=== PATIENT | female | born 1975 | race Caucasian/White ===

== ENCOUNTER 2016-12-30 23:54 | Emergency (ER) | payer MEDICARE, MEDICAID ==
--- NOTE | 2016-12-31 00:23 | ED Physician Chart ---
ED Chief Complaint/HPI - Patient Information Date Seen:: 12/30/16 Time Seen:: 23:59 Chief Complaint:: g-tube plugged up History of Present Illness:: THIS IS A 41 YO FEMALE SEVERE CP PATIENT SENT FROM THE [facility] FOR A G- TUBE MALFUNCTIONING. SHE IS NON-VERBAL AND QUADRAPLEGIC. Allergies:: Allergies Allergy/AdvReac Type Severity Reaction Status Date / Time No Known Allergies Allergy Verified 12/31/16 00:03 Vitals:: Vital Signs - 8 hr 12/30/16 23:55 Temp 97.9 F HR 70 RR 20 BP 114/61 O2 Sat % 96 Historian:: Medical Records Review:: Nurse's Note Reviewed, Transfer documents Reviewed ED Review of Systems - Review of Systems General/Constitutional: No fever, No chills, No weight loss, No weakness, No diaphoresis, No edema, No loss of appetite, Other (THIS PT IS UNABLE TO GIVE A REVIEW OF SYSTEMS.) Skin: No skin lesions, No rash, No bruising Head: No headache, No light-headedness Eyes: No loss of vision, No pain, No diplopia ENT: No earache, No nasal drainage, No sore throat, No tinnitus Neck: No neck pain, No swelling, No thyromegaly, No stiffness, No mass noted Cardio Vascular: No chest pain, No palpitations, No PND, No orthopnea, No edema Pulmonary: No SOB, No cough, No sputum, No wheezing GI: No nausea, No vomiting, No diarrhea, No pain, No melena, No hematochezia, No constipation, No hematemesis G/U: No dysuria, No frequency, No hematuria Musculoskeletal: No bone or joint pain, No back pain, No muscle pain Endocrine: No polyuria, No polydipsia Psychiatric: No prior psych history, No depression, No anxiety, No suicidal ideation Hematopoietic: No bruising, No lymphadenopathy Allergic/Immuno: No urticaria, No angioedema Neurological: No syncope, No focal symptoms, No weakness, No paresthesia, No headache, No seizure, No dizziness, No confusion, No vertigo ED Past Medical History - Past Medical History Obtainable: Yes Past Medical History: CVA/TIA, Dementia Family History: None Social History: Non Smoker, No Alcohol, No Drug Use, Care Facility Surgical History: PEG/GTube Psychiatricy History: Dementia Medication: Reviewed Family Medical History - Family Member Mother History Unknown: Yes ED Physical Exam - Physical Examination General/Constitutional: Well-developed, well-nourished, Alert, No distress, GCS 15, Non-toxic appearing, Ambulatory Other Gen/Cons comments:: 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 Head: Atraumatic Eyes: Lids, conjuctiva normal, PERRL, EOMI Skin: Nl inspection, No rash, No skin lesions, No ecchymosis, Well hydrated, No lymphadenopathy ENMT: External ears, nose nl, Nasal exam nl, Lips, teeth, gums nl Neck: Nontender, Full ROM w/o pain, No JVD, No nuchal rigidity, No bruit, No mass, No stridor Respiratory: Nl effort/Exclusion, Clear to Auscultation, No Wheeze/Rhonchi/Rales Cardio Vascular: RRR, No murmur, gallop, rubs, NL S1 S2 GI: No tenderness/rebounding/guarding, No organomegaly, No hernia, Normal BS's, Nondistended, No mass/bruits, No McBurney tenderness Other GI comments:: ABDOMEN IS SOFT AND G-TUBE NOTED IN PLACE WITH GOOD NORMAL FUNCTIONING AFTER UNPLUGGING IT : No CVA tenderness Extremities: No tenderness or effusion, Full ROM, normal strength in all extremities, No edema, Normal digits & nails Neuro/Psych: DTR's symmetric, Normal sensory exam, Normal motor strength, Mood normal, Normal gait Other Neuro/Psych comments:: QUADRAPLEGIC Misc: normal gait, Normal back, No paraspinal tenderness ED Assessment - Assessment General Assessment: MALFUNCTIONING G-TUBE ED Septic Shock - . Is Septic Shock (SBP<90, OR Lactate>4 mmol\L) present?: No - <6hrs of presentation: Vital Signs: Vital Signs - 8 hr 12/30/16 23:55 Temp 97.9 F HR 70 RR 20 BP 114/61 O2 Sat % 96 ED Reassessment (Disposition) - Reassessment Reassessment Condition:: Improved - Diagnosis Diagnosis:: G-TUBE MALFUNCTIONING - Aftercare/Follow up Instructions Aftercare/Follow-Up Instructions:: Counseled pt regarding lab results/diagnosis & need follow up, Refer to Discharge Instructions, Counseled pt & family regarding lab results/diagnosis & need follow up - Patient Disposition Discharge/Transfer:: Senior Care Care - SNF Condition at Disposition:: Improved ED Discharge Plan - Patient Disposition Admit/Discharge/Transfer: Discharge/Transfered to SNF Instructions: Care of a Feeding Tube, [id number] Additional Instructions: PT'S J - TUBE WAS CLEARED WITH WATER. PLEASE FOLLOW UP WITH THE PT'S REGULAR DOCTOR.
== END 2016-12-31 00:15 ==
LOC: ER 23:54
DX: K94.23 Gastrostomy malfunction (principal); Z86.73 Personal history of transient ischemic attack (TIA), and cerebral infarction without residual deficits
CPT/HCPCS: Z7502

== ENCOUNTER 2017-01-09 23:35 | Inpatient (IN) | payer MEDICARE, MEDICAID ==
[2017-01-10 01:10] LABS: % BASOPHILS 0.1 % (0.0-2.0); % EOSINOPHILS 4.2 % (0.0-5.0); % LYMPHOCYTES 48.9 % (20.0-50.0); % MONOCYTES 6.8 % (2.0-10.0); HEMATOCRIT 36.5 % (41.0-60); HEMOGLOBIN 12.2 gm/dL (12-16); MEAN CORPUSCULAR HEMOGLOBIN 33.8 pg (27.0-31.0); MEAN CORPUSCULAR HGB CONC 33.4 pg (28.0-36.0); MEAN PLATELET VOLUME 9.3 fl; NEUTROPHILE ABSOLUTE 1.8 Th/cmm (1.8-8.0); PLATELET COUNT 162 Th/cmm (150-400); RED BLOOD COUNT 3.61 Mil/cmm (3.80-5.10); RED CELL DISTRIBUTION WIDTH 14.3 % (11.5-20.0); WHITE BLOOD COUNT 4.4 Th/cmm (4.8-10.8)
[2017-01-10 01:29] LABS: ALKALINE PHOSPHATASE 566 U/L (34-104); ANION GAP 8.2 (7.0-16.0); BILIRUBIN,TOTAL 0.2 mg/dL (0.3-1.0); BUN - UREA NITROGEN 19 mg/dL (7-25); BUN/CREATININE RATIO 47.5; CALCIUM SERUM 9.9 mg/dL (8.6-10.3); CARBON DIOXIDE 30.1 mEq/L (21.0-31.0); CHLORIDE 100 mEq/L (98-107); CREATININE - SERUM 0.4 mg/dL (0.6-1.2); GLUCOSE 81 mg/dL (70-105); POTASSIUM SERUM 4.3 mEq/L (3.5-5.1); SGOT 112 U/L (13-39); SGPT/ALT 252 U/L (7-52); SODIUM SERUM 134 mEq/L (136-145)
[2017-01-10 03:00] LABS: URINE BILIRUBIN NEGATIVE (NEGATIVE); URINE BLOOD NEGATIVE (NEGATIVE); URINE GLUCOSE (UA) NEGATIVE (NEGATIVE); URINE KETONE NEGATIVE (NEGATIVE); URINE PROTEIN TRACE mg/dL (NEGATIVE); URINE UROBILINOGEN 0.2 E.U./dL (0.2 - 1.0)
[2017-01-10 03:06] LABS: URINE COLOR YELLOW
[2017-01-10 03:07] LABS: URINE AMORPHOUS SEDIMENT MODERATE PHOSPHATES (NONE SEEN); URINE BACTERIA FEW /hpf (NONE SEEN); URINE EPITHELIAL CELLS OCCASIONAL /lpf (FEW); URINE RBC 0-2 /hpf (0-5); URINE WBC 0-2 /hpf (0-5)
--- NOTE | 2017-01-10 06:21 | ED Physician Chart ---
ED Chief Complaint/HPI - Patient Information Date Seen:: 01/09/17 Time Seen:: 23:55 Chief Complaint:: MALFUNCTIONING OF THE G-TUBE History of Present Illness:: THIS IS A 41 YO FEMALE SEVERE CEREBRAL PALSY PATIENT SENT [facility] FOR EVALU[facility] AND TREATMENT FOR THE MALFUNCTIONING OF THE GJ-TUBE. THE PATIENT IS CHRONICALLY ILL WITH CIRRHOSIS, ANEMIA, SEIZURES,HTN AND HAS A PACE MAKER. Allergies:: Allergies Allergy/AdvReac Type Severity Reaction Status Date / Time No Known Allergies Allergy Verified 01/09/17 23:50 Vitals:: Vital Signs - 8 hr 01/09/17 01/10/17 01/10/17 23:40 03:00 04:02 Temp 97.9 F HR 75 80 80 RR 18 13 13 BP 131/82 96/55 95/45 O2 Sat % 97 95 94 Historian:: Medical Records Review:: Nurse's Note Reviewed, Old Chart Reviewed, Transfer documents Reviewed ED Review of Systems - Review of Systems General/Constitutional: No fever, No chills, No weight loss, No weakness, No diaphoresis, No edema, No loss of appetite, Other (THIS PATIENT IS UNABLE TO GIVE A REVIEW OF SYSTEMS.) Skin: No skin lesions, No rash, No bruising Head: No headache, No light-headedness Eyes: No loss of vision, No pain, No diplopia ENT: No earache, No nasal drainage, No sore throat, No tinnitus Neck: No neck pain, No swelling, No thyromegaly, No stiffness, No mass noted Cardio Vascular: No chest pain, No palpitations, No PND, No orthopnea, No edema Pulmonary: No SOB, No cough, No sputum, No wheezing GI: No nausea, No vomiting, No diarrhea, No pain, No melena, No hematochezia, No constipation, No hematemesis G/U: No dysuria, No frequency, No hematuria Musculoskeletal: No bone or joint pain, No back pain, No muscle pain Endocrine: No polyuria, No polydipsia Psychiatric: No prior psych history, No depression, No anxiety, No suicidal ideation Hematopoietic: No bruising, No lymphadenopathy Allergic/Immuno: No urticaria, No angioedema Neurological: No syncope, No focal symptoms, No weakness, No paresthesia, No headache, No seizure, No dizziness, No confusion, No vertigo ED Past Medical History - Past Medical History Obtainable: Yes Past Medical History: HTN, CAD, Dyslipidemia, PUD/GERD, Seizures, Dementia Family History: None Social History: Non Smoker, No Alcohol, No Drug Use, Care Facility Surgical History: Cholecystectomy, Pacemaker, PEG/GTube Psychiatricy History: None Medication: Reviewed Family Medical History - Family Member Mother History Unknown: Yes ED Physical Exam - Physical Examination General/Constitutional: Awake, Well-developed, well-nourished, Alert, No distress, GCS 15, Non-toxic appearing, Ambulatory Other Gen/Cons comments:: THE PATIENT IS AWAKE BUT UNABLE TO COMMUNICATE Head: Atraumatic Eyes: Lids, conjuctiva normal, PERRL, EOMI Skin: Nl inspection, No rash, No skin lesions, No ecchymosis, Well hydrated, No lymphadenopathy ENMT: External ears, nose nl, Nasal exam nl, Lips, teeth, gums nl Neck: Nontender, Full ROM w/o pain, No JVD, No nuchal rigidity, No bruit, No mass, No stridor Respiratory: Nl effort/Exclusion, Clear to Auscultation, No Wheeze/Rhonchi/Rales Cardio Vascular: RRR, No murmur, gallop, rubs, NL S1 S2 GI: No tenderness/rebounding/guarding, No organomegaly, No hernia, Normal BS's, Nondistended, No mass/bruits, No McBurney tenderness Other GI comments:: J-TUBE NOTED IN PLACE BUT NOT FUNCTIONING. : No CVA tenderness Extremities: No tenderness or effusion, Full ROM, normal strength in all extremities, No edema, Normal digits & nails Neuro/Psych: DTR's symmetric, Normal sensory exam, Normal motor strength, Mood normal, Normal gait Other Neuro/Psych comments:: SPASTIC QUADRIPLEGIC WITH OPTIC ATROPHY Misc: normal gait, Normal back, No paraspinal tenderness ED Labs/Radiology/EKG Results - Lab Results Results: Laboratory Tests 01/10/17 01/10/17 01/10/17 00:40 00:40 00:40 WBC 4.4 L RBC 3.61 L Hgb 12.2 Hct 36.5 L MCV 101.0 H MCH 33.8 H MCHC Differential 33.4 RDW 14.3 Plt Count 162 MPV 9.3 Neutrophils % 40.0 Lymphocytes % 48.9 Monocytes % 6.8 Eosinophils % 4.2 Basophils % 0.1 Sodium 134 L Potassium 4.3 Chloride 100 Carbon Dioxide 30.1 Anion Gap 8.2 BUN 19 Creatinine 0.4 L Est GFR ( Amer) > 60.0 Est GFR (Non-Af Amer) > 60.0 BUN/Creatinine Ratio 47.5 Glucose 81 Calcium 9.9 Total Bilirubin 0.2 L AST 112 H ALT 252 H Alkaline Phosphatase 566 H Ammonia Total Protein 7.0 Albumin 3.5 L Globulin 3.5 Albumin/Globulin Ratio 1.0 Amylase TSH 2.12 Urine Source Urine Color Urine Clarity Urine pH Ur Specific [place] Urine Protein Urine Glucose (UA) Urine Ketones Urine Blood Urine Nitrate Urine Bilirubin Urine Urobilinogen Ur Leukocyte Esterase Urine RBC Urine WBC Ur Epithelial Cells Amorphous Sediment Urine Bacteria 01/10/17 01/10/17 01/10/17 00:40 00:40 02:45 WBC RBC Hgb Hct MCV MCH MCHC Differential RDW Plt Count MPV Neutrophils % Lymphocytes % Monocytes % Eosinophils % Basophils % Sodium Potassium Chloride Carbon Dioxide Anion Gap BUN Creatinine Est GFR ( Amer) Est GFR (Non-Af Amer) BUN/Creatinine Ratio Glucose Calcium Total Bilirubin AST ALT Alkaline Phosphatase Ammonia 78 H Total Protein Albumin Globulin Albumin/Globulin Ratio Amylase 112 H TSH Urine Source CLEAN C Urine Color YELLOW Urine Clarity HAZY Urine pH 8.0 Ur Specific [place] 1.010 Urine Protein TRACE Urine Glucose (UA) NEGATIVE Urine Ketones NEGATIVE Urine Blood NEGATIVE Urine Nitrate NEGATIVE Urine Bilirubin NEGATIVE Urine Urobilinogen 0.2 Ur Leukocyte Esterase NEGATIVE Urine RBC 0-2 Urine WBC 0-2 Ur Epithelial Cells OCCASIONAL Amorphous Sediment MODERATE PHOSPHATES Urine Bacteria FEW ED Assessment - Assessment General Assessment: J-TUBE MALFUNCTIONING LIVER CIRRHOSIS SEVERE CP ED Septic Shock - . Is Septic Shock (SBP<90, OR Lactate>4 mmol\L) present?: No - <6hrs of presentation: Vital Signs: Vital Signs - 8 hr 01/09/17 01/10/17 01/10/17 23:40 03:00 04:02 Temp 97.9 F HR 75 80 80 RR 18 13 13 BP 131/82 96/55 95/45 O2 Sat % 97 95 94 ED Reassessment (Disposition) - Reassessment Reassessment Condition:: Unchanged - Diagnosis Diagnosis:: J-TUBE MALFUNCTIONING CHRONIC LIVER DISEASE SEVERE CEREBRAL PALSY - Patient Disposition Discharge/Transfer:: Acute Care w/in this hosp Admitting Medical Physician:: Adonay Ariza Condition at Disposition:: Unchanged ED Discharge Plan - Patient Disposition Admit/Discharge/Transfer: Acute Care w/in this hosp Condition at Disposition: Unchanged
--- NOTE | 2017-01-10 08:28 | History and Physical ---
History of Present Illness - HPI Chief Complaint: malfunctioning of the gtube HPI: 41 year old female who presents to [facility] ER for evaluation and treatment for the malfunctioning GJ tube noted at the group home. Patient has a history of cirrhosis,anemia,seizures,htn and has a pacemaker. Patient was routine labwork done in the ER. 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, Other (Cerebral Palsy,Dementia) GI: Report: Gastritis, Peptic Ulcer, Other (chronic liver disease) Psych: Report: No Pertinent Hx Musculoskeletal: Report: No Pertinent Hx Rheumatologic: Report: No pertinent Hx Infectious Disease: Report: No Pertinent Hx Renal/: Report: No Pertinent Hx Endocrine: Report: No Pertinent Hx Dermatology: Report: No Pertinent Hx - Past Surgical History Past Surgical History: Other (chlecystectomy,pacemaker placement,PEG/GT placement) Family Medical History - Family Member Mother History Unknown: Yes Social History Smoke: No Alcohol: None Drugs: None Lives: Correction - Medications Home Medications: Home Medication Medication Instructions Recorded Type Acetaminophen [Tylenol] 650 mg GT Q4HR PRN 12/31/16 History Alendronate Sodium [Fosamax] 70 mg GT QFRI 12/31/16 History Ascorbic Acid [Vitamin C] 500 mg GT DAILY 12/31/16 History Bisacodyl [Dulcolax 10 Mg Supp] 10 mg RC Q96HR PRN 12/31/16 History Calcium Carbonate [Tums] 500 mg GT Q6HR PRN 12/31/16 History Calcium Citrate/Vitamin D3 1 each GT DAILY 12/31/16 History [Calcium Citrate +Vit D3 Tablet] Docusate Sodium 100 mg GT TID 12/31/16 History Ferrous Sulfate [Ferosul] 220 mg GT DAILY 12/31/16 History Fleet Enema [Fleet Enema] 1 bot RC Q96HR PRN 12/31/16 History Fludrocortisone Acetate [Florinef] 0.1 mg GT DAILY 12/31/16 History Folic Acid [Folate*] 1 mg GT DAILY 12/31/16 History Lacosamide [Vimpat] 200 mg GT BID 12/31/16 History Levothyroxine [Synthroid] 0.05 mg GT QDAC 12/31/16 History Magnesium Hydroxide [Milk of 30 ml GT Q72HR PRN 12/31/16 History Magnesia] Metoclopramide HCl 10 ml GT Q8HR 12/31/16 History Midodrine [Proamatine] 5 mg GT TID 12/31/16 History Multivitamin w/ Minerals 1 tab GT DAILY 12/31/16 History [Theragran M] Sucralfate [Carafate] 10 ml GT QID 12/31/16 History Ursodiol [Actigall] 300 mg GT DAILY 12/31/16 History acetaZOLAMIDE [Diamox] 250 mg GT MONFRI 12/31/16 History - Allergies Allergies/Adverse Reactions: Allergies Allergy/AdvReac Type Severity Reaction Status Date / Time No Known Allergies Allergy Verified 01/09/17 23:50 Review of Systems - Review of Systems Constitutional: Report: Other (patient unable to provide a review of systems) Eyes: Report: No Significant ENT: Report: No Significant Respiratory: Report: No Significant Cardiovascular: Report: No Significant Gastrointestinal: Report: Other (malfunctioning Gtube) Genitourinary: Report: No Significant Musculoskeletal: Report: No Significant Skin: Report: No Significant Neurological: Report: No Significant, Seizures, Other (spastic quadriplegia with optic atrophy) Physical Exam - Physical Exam HEENT: Report: Ears Nose Throat within normal limits, Pharnyx within normal limits Neck: Report: Within normal limits Cardiovascular Systems: Report: +s1/s2 noted, Regular, Rate and Rhythm Respiratory: Report: Breath Sounds are within normal limits Abdomen: Report: Non-tender to palpation Back: Report: Inspection of back is within normal limits. Extremities: Report: Non-tender to palpation., Patient had full range of motion Skin: Report: Color of skin is within normal limits Neuro/Psych: Report: Mood affect is within normal limits, A+Ox3 - Lab Results All Lab Results last 24 hours: Laboratory Last Values WBC 4.4 Th/cmm (4.8-10.8) L 01/10/17 00:40 RBC 3.61 Mil/cmm (3.80-5.10) L 01/10/17 00:40 Hgb 12.2 gm/dL (12-16) 01/10/17 00:40 Hct 36.5 % (41.0-60) L 01/10/17 00:40 MCV 101.0 fl (81-100) H 01/10/17 00:40 MCH 33.8 pg (27.0-31.0) H 01/10/17 00:40 MCHC Differential 33.4 pg (28.0-36.0) 01/10/17 00:40 RDW 14.3 % (11.5-20.0) 01/10/17 00:40 Plt Count 162 Th/cmm (150-400) 01/10/17 00:40 MPV 9.3 fl 01/10/17 00:40 Neutrophils % 40.0 % (40.0-80.0) 01/10/17 00:40 Lymphocytes % 48.9 % (20.0-50.0) 01/10/17 00:40 Monocytes % 6.8 % (2.0-10.0) 01/10/17 00:40 Eosinophils % 4.2 % (0.0-5.0) 01/10/17 00:40 Basophils % 0.1 % (0.0-2.0) 01/10/17 00:40 Sodium 134 mEq/L (136-145) L 01/10/17 00:40 Potassium 4.3 mEq/L (3.5-5.1) 01/10/17 00:40 Chloride 100 mEq/L (98-107) 01/10/17 00:40 Carbon Dioxide 30.1 mEq/L (21.0-31.0) 01/10/17 00:40 Anion Gap 8.2 (7.0-16.0) 01/10/17 00:40 BUN 19 mg/dL (7-25) 01/10/17 00:40 Creatinine 0.4 mg/dL (0.6-1.2) L 01/10/17 00:40 Est GFR ( Amer) > 60.0 ml/min (>90) 01/10/17 00:40 Est GFR (Non-Af Amer) > 60.0 ml/min 01/10/17 00:40 BUN/Creatinine Ratio 47.5 01/10/17 00:40 Glucose 81 mg/dL (70-105) 01/10/17 00:40 Calcium 9.9 mg/dL (8.6-10.3) 01/10/17 00:40 Total Bilirubin 0.2 mg/dL (0.3-1.0) L 01/10/17 00:40 AST 112 U/L (13-39) H 01/10/17 00:40 ALT 252 U/L (7-52) H 01/10/17 00:40 Alkaline Phosphatase 566 U/L (34-104) H 01/10/17 00:40 Ammonia 78 umol/L (16-53) H 01/10/17 00:40 Total Protein 7.0 gm/dL (6.0-8.3) 01/10/17 00:40 Albumin 3.5 gm/dL (3.7-5.3) L 01/10/17 00:40 Globulin 3.5 gm/dL 01/10/17 00:40 Albumin/Globulin Ratio 1.0 (1.0-1.8) 01/10/17 00:40 Amylase 112 U/L (29-103) H 01/10/17 00:40 TSH 2.12 uIU/ml (0.34-5.60) 01/10/17 00:40 Urine Source CLEAN C 01/10/17 02:45 Urine Color YELLOW 01/10/17 02:45 Urine Clarity HAZY (CLEAR) 01/10/17 02:45 Urine pH 8.0 (4.6 - 8.0) 01/10/17 02:45 Ur Specific [place] 1.010 (1.005-1.030) 01/10/17 02:45 Urine Protein TRACE mg/dL (NEGATIVE) 01/10/17 02:45 Urine Glucose (UA) NEGATIVE mg/dL (NEGATIVE) 01/10/17 02:45 Urine Ketones NEGATIVE mg/dL (NEGATIVE) 01/10/17 02:45 Urine Blood NEGATIVE (NEGATIVE) 01/10/17 02:45 Urine Nitrate NEGATIVE (NEGATIVE) 01/10/17 02:45 Urine Bilirubin NEGATIVE (NEGATIVE) 01/10/17 02:45 Urine Urobilinogen 0.2 E.U./dL (0.2 - 1.0) 01/10/17 02:45 Ur Leukocyte Esterase NEGATIVE (NEGATIVE) 01/10/17 02:45 Urine RBC 0-2 /hpf (0-5) 01/10/17 02:45 Urine WBC 0-2 /hpf (0-5) 01/10/17 02:45 Ur Epithelial Cells OCCASIONAL /lpf (FEW) 01/10/17 02:45 Amorphous Sediment MODERATE PHOSPHATES (NONE SEEN) 01/10/17 02:45 Urine Bacteria FEW /hpf (NONE SEEN) 01/10/17 02:45 - Assessment Assessment: malfunctioning gtube ... GI consult for evaluation. cirrhosis anemia seizures htn pacemaker - Plan Plan: malfunctioning gtube ... GI consult for evaluation. cirrhosis anemia seizures htn pacemaker
[2017-01-10] MEDS ORDERED: Magnesium Hydroxide (MOM) 30 mL UDC GT PRN (08:33)
[2017-01-10] MEDS ORDERED: Fleet Enema 135 mL RC PRN (08:33)
[2017-01-10 09:29] LABS: ACETAMINOPHEN < 10.0 ug/mL (10.0-30.0)
--- NOTE | 2017-01-10 11:05 | Diagnostic Imaging Report ---
Ultrasound abdomen HISTORY: Elevated liver function test , provided history of cholecystectomy. COMPARISON: None Technique: Sonography of the abdomen was performed in multiple planes. FINDINGS: Exam is limited due to body habitus and bowel gas and patient uncooperative. The liver demonstrates normal echogenicity and measures 13.4 cm. The liver margin is not well-defined limiting assessment for focal lesions. The gallbladder was not visualized. The common bile duct was also not visualized. The pancreas is not well-visualized due to bowel gas. The right kidney measures 8.0 cm. Left kidney measures 8.3 cm. No obvious focal lesions or hydronephrosis. The renal margins are not well-defined due to bowel gas. The spleen measures 9.2 cm. IMPRESSION: Markedly Limited exam due to bowel gas and patient not cooperating for the examination. No evidence of hepatomegaly The gallbladder was not visualized which may be due to prior cholecystectomy or gallbladder contraction. Please correlate with surgical history. The common bile duct was also not visualized. If clinically warranted CT follow-up may also be obtained.
--- NOTE | 2017-01-10 11:59 | Consultation ---
DATE OF CONSULTATION: 01/10/2017 INPATIENT GASTROINTESTINAL CONSULT REFERRING PHYSICIAN: Dr. Ariza. REASON FOR CONSULTATION: Malfunctioning of the GJ tube. HISTORY OF PRESENT ILLNESS: This is a 41-year-old female with cerebral palsy, sent in from a retirement because of malfunctioning of GJ tube. The patient is otherwise a poor historian, unable to give any meaningful history. PAST MEDICAL HISTORY: Include cirrhosis, anemia, seizure disorder, hypertension, cardiac arrhythmia. PAST SURGICAL HISTORY: GJ tube placement and pacemaker. FAMILY HISTORY: Noncontributory. SOCIAL HISTORY: Resident of skilled facility. ALLERGIES: None. CURRENT MEDICATIONS: See my medication reconciliation list. REVIEW OF SYSTEMS: Unobtainable. PHYSICAL EXAMINATION: VITAL SIGNS: Temperature is 98.6, breathing 13, pulse of 80, blood pressure 97/65, satting 95%. GENERAL: In no apparent distress. EYES: Anicteric, normal conjunctivae. HEENT: Normocephalic and atraumatic. Moist mucous membranes. NECK: Soft, supple. CHEST: Clear. No effort. CARDIOVASCULAR: Regular rate and rhythm. ABDOMEN: Soft, nontender, nondistended with the GJ tube. SKIN: Warm, dry. EXTREMITIES: Reveal no cyanosis. PSYCHOLOGICAL: Awake. LABORATORY DATA: Show white count 4.4, hemoglobin 12.2, platelets of 162, total bilirubin 0.2, AST 112, ALT 252, alk phos 566. IMPRESSION: A 41-year-old female with malfunctioning GJ tube will likely need to have it replaced, also has elevated LFTs, may have underlying history of liver disease. An alpha-fetoprotein and ultrasound can also be performed. The patient should have longitudinal care for her liver as an outpatient to follow the progress. PLAN: 1. We will change GJ tube. 2. Check LFTs, alpha-fetoprotein and abdominal ultrasound. 3. The patient should have longitudinal hepatology care. Thank you for allowing me to participate. Please call me if any questions. JOB# [id number]
[2017-01-10] MEDS: Ferrous Sulfate 300 MG/5 ML UDC GT SCH (12:06)
[2017-01-10] MEDS: Calcium Carb/Vit D 500 mg/200 U Tab GT SCH (12:06)
[2017-01-10] MEDS: Multivitamin w/ Minerals Tab GT SCH (12:07)
[2017-01-10] MEDS: D5-0.9%NS 1,000 ML IV SCH (15:53)
[2017-01-10] MEDS: Docusate Sodium 100 mg/10 mL UD GT SCH ×2 (16:15→21:32)
[2017-01-11] MEDS: D5-0.9%NS 1,000 ML IV SCH ×2 (04:43→22:01)
[2017-01-11 05:34] LABS: % BASOPHILS 0.2 % (0.0-2.0); % EOSINOPHILS 4.8 % (0.0-5.0); % LYMPHOCYTES 49.8 % (20.0-50.0); % MONOCYTES 6.4 % (2.0-10.0); % NEUTROPHILS 38.8 % (40.0-80.0); HEMATOCRIT 36.7 % (41.0-60); HEMOGLOBIN 12.3 gm/dL (12-16); MEAN CELL VOLUME 101.1 fl (81-100); MEAN CORPUSCULAR HEMOGLOBIN 33.8 pg (27.0-31.0); MEAN CORPUSCULAR HGB CONC 33.4 pg (28.0-36.0); MEAN PLATELET VOLUME 9.6 fl; NEUTROPHILE ABSOLUTE 1.6 Th/cmm (1.8-8.0); PLATELET COUNT 183 Th/cmm (150-400); RED BLOOD COUNT 3.63 Mil/cmm (3.80-5.10); RED CELL DISTRIBUTION WIDTH 14.8 % (11.5-20.0); WHITE BLOOD COUNT 4.1 Th/cmm (4.8-10.8)
[2017-01-11 05:43] LABS: PROTHROMBIN TIME (TEST) 10.4 SECONDS (9.5-11.5)
[2017-01-11 06:03] LABS: ALKALINE PHOSPHATASE 574 U/L (34-104); ANION GAP 8.8 (7.0-16.0); BILIRUBIN,TOTAL 0.2 mg/dL (0.3-1.0); BUN - UREA NITROGEN 15 mg/dL (7-25); BUN/CREATININE RATIO 37.5; CALCIUM SERUM 9.7 mg/dL (8.6-10.3); CARBON DIOXIDE 28.3 mEq/L (21.0-31.0); CHLORIDE 111 mEq/L (98-107); CREATININE - SERUM 0.4 mg/dL (0.6-1.2); GLUCOSE 88 mg/dL (70-105); POTASSIUM SERUM 4.1 mEq/L (3.5-5.1); SGOT 110 U/L (13-39); SGPT/ALT 249 U/L (7-52); SODIUM SERUM 144 mEq/L (136-145)
[2017-01-11 08:13] LABS: IRON SATURATION 85 % (15-55); TIBC (LCI) 255 ug/dL (250-450); UIBC 37 ug/dL (131-425)
--- NOTE | 2017-01-11 08:13 | General Progress Note ---
Subjective - Review of Systems Service Date: 01/11/17 Subjective: Awake,alert,afebrile. continue IV fluids. Objective - Results Result Diagrams: 01/11/17 04:45 01/11/17 04:45 Recent Labs: Laboratory Last Values WBC 4.1 Th/cmm (4.8-10.8) L 01/11/17 04:45 RBC 3.63 Mil/cmm (3.80-5.10) L 01/11/17 04:45 Hgb 12.3 gm/dL (12-16) 01/11/17 04:45 Hct 36.7 % (41.0-60) L 01/11/17 04:45 MCV 101.1 fl (81-100) H 01/11/17 04:45 MCH 33.8 pg (27.0-31.0) H 01/11/17 04:45 MCHC Differential 33.4 pg (28.0-36.0) 01/11/17 04:45 RDW 14.8 % (11.5-20.0) 01/11/17 04:45 Plt Count 183 Th/cmm (150-400) 01/11/17 04:45 MPV 9.6 fl 01/11/17 04:45 Neutrophils % 38.8 % (40.0-80.0) L 01/11/17 04:45 Lymphocytes % 49.8 % (20.0-50.0) 01/11/17 04:45 Monocytes % 6.4 % (2.0-10.0) 01/11/17 04:45 Eosinophils % 4.8 % (0.0-5.0) 01/11/17 04:45 Basophils % 0.2 % (0.0-2.0) 01/11/17 04:45 PT 10.4 SECONDS (9.5-11.5) 01/11/17 04:45 INR 1.00 (0.5-1.4) 01/11/17 04:45 PTT (Actin FS) 31.5 SECONDS (26.0-38.0) 01/11/17 04:45 Sodium 144 mEq/L (136-145) 01/11/17 04:45 Potassium 4.1 mEq/L (3.5-5.1) 01/11/17 04:45 Chloride 111 mEq/L (98-107) H 01/11/17 04:45 Carbon Dioxide 28.3 mEq/L (21.0-31.0) 01/11/17 04:45 Anion Gap 8.8 (7.0-16.0) 01/11/17 04:45 BUN 15 mg/dL (7-25) 01/11/17 04:45 Creatinine 0.4 mg/dL (0.6-1.2) L 01/11/17 04:45 Est GFR ( Amer) > 60.0 ml/min (>90) 01/11/17 04:45 Est GFR (Non-Af Amer) > 60.0 ml/min 01/11/17 04:45 BUN/Creatinine Ratio 37.5 01/11/17 04:45 Glucose 88 mg/dL (70-105) 01/11/17 04:45 POC Glucose 85 MG/DL (70 - 105) 01/10/17 12:55 Calcium 9.7 mg/dL (8.6-10.3) 01/11/17 04:45 Total Bilirubin 0.2 mg/dL (0.3-1.0) L 01/11/17 04:45 AST 110 U/L (13-39) H 01/11/17 04:45 ALT 249 U/L (7-52) H 01/11/17 04:45 Alkaline Phosphatase 574 U/L (34-104) H 01/11/17 04:45 Ammonia 78 umol/L (16-53) H 01/10/17 00:40 Total Protein 7.0 gm/dL (6.0-8.3) 01/11/17 04:45 Albumin 3.5 gm/dL (3.7-5.3) L 01/11/17 04:45 Globulin 3.5 gm/dL 01/11/17 04:45 Albumin/Globulin Ratio 1.0 (1.0-1.8) 01/11/17 04:45 Amylase 115 U/L (29-103) H 01/10/17 00:40 TSH 2.12 uIU/ml (0.34-5.60) 01/10/17 00:40 Urine Source CLEAN C 01/10/17 02:45 Urine Color YELLOW 01/10/17 02:45 Urine Clarity HAZY (CLEAR) 01/10/17 02:45 Urine pH 8.0 (4.6 - 8.0) 01/10/17 02:45 Ur Specific [place] 1.010 (1.005-1.030) 01/10/17 02:45 Urine Protein TRACE mg/dL (NEGATIVE) 01/10/17 02:45 Urine Glucose (UA) NEGATIVE mg/dL (NEGATIVE) 01/10/17 02:45 Urine Ketones NEGATIVE mg/dL (NEGATIVE) 01/10/17 02:45 Urine Blood NEGATIVE (NEGATIVE) 01/10/17 02:45 Urine Nitrate NEGATIVE (NEGATIVE) 01/10/17 02:45 Urine Bilirubin NEGATIVE (NEGATIVE) 01/10/17 02:45 Urine Urobilinogen 0.2 E.U./dL (0.2 - 1.0) 01/10/17 02:45 Ur Leukocyte Esterase NEGATIVE (NEGATIVE) 01/10/17 02:45 Urine RBC 0-2 /hpf (0-5) 01/10/17 02:45 Urine WBC 0-2 /hpf (0-5) 01/10/17 02:45 Ur Epithelial Cells OCCASIONAL /lpf (FEW) 01/10/17 02:45 Amorphous Sediment MODERATE PHOSPHATES (NONE SEEN) 01/10/17 02:45 Urine Bacteria FEW /hpf (NONE SEEN) 01/10/17 02:45 Salicylates < 25.0 mg/L (30.0-100.0) L 01/10/17 08:23 Acetaminophen < 10.0 ug/mL (10.0-30.0) L 01/10/17 08:23 - Physical Exam Vitals and I&O: Vital Signs Temp 98 F 01/11/17 04:00 Pulse 92 01/11/17 04:00 Resp 18 01/11/17 04:00 BP 105/73 01/11/17 04:00 Pulse Ox 96 01/11/17 04:00 Intake & Output 01/10/17 01/11/17 01/11/17 18:59 06:59 18:59 Intake Total 0 1120.0 Balance 0 1120.0 Weight (lbs) 48.534 kg 51.846 kg Intake: Intake, IV Amount 1120.0 D5-0.9%Ns 1,000 ml @ 75 1120.0 mls/hr IV .[id number] [facility] Rx #:[id number] Oral 0 0 Other: # Voids 3 2 # Bowel Movements 0 1 Stool Characteristics Formed Active Medications: Current Medications Acetaminophen (Tylenol) 650 mg GT Q4HR PRN PRN Reason: Pain or Fever >101 Stop: 03/11/17 08:32 Acetazolamide (Diamox) [address] [facility] Stop: 03/14/17 08:59 Alendronate Sodium (Fosamax) 70 mg PO QFRI@0630 [facility] Stop: 03/14/17 06:29 Ascorbic Acid (Vitamin C) [address] [facility] Stop: 03/11/17 11:59 Last Admin: 01/10/17 12:05 Dose: Not Given Bisacodyl (Dulcolax 10 Mg Supp) 10 mg RC Q96HR PRN PRN Reason: Constipation Stop: 03/11/17 08:32 Calcium Carbonate (Tums) 500 mg GT Q6HR PRN PRN Reason: Indigestion Stop: 03/11/17 08:32 Calcium/Vitamin D (Oscal W/Vitamin D) [address] [facility] Stop: 03/11/17 11:59 Last Admin: 01/10/17 12:06 Dose: Not Given Docusate Sodium (Colace) [address] [facility] Stop: 03/11/17 13:59 Last Admin: 01/10/17 21:32 Dose: Not Given Ferrous Sulfate (Iron) [address] [facility] Stop: 03/11/17 11:59 Last Admin: 01/10/17 12:06 Dose: Not Given Fludrocortisone Acetate (Florinef) 0.[address] [facility] Stop: 03/11/17 11:59 Last Admin: 01/10/17 12:06 Dose: Not Given Folic Acid (Folate) [address] [facility] Stop: 03/11/17 11:59 Last Admin: 01/10/17 12:07 Dose: Not Given Dextrose/Sodium Chloride (D5-0.9%Ns) 1,000 mls @ 75 mls/hr IV .[id number] [facility] Stop: 03/11/17 15:24 Last Infusion: 01/11/17 06:49 Dose: 75 mls/hr Lacosamide (Vimpat) [address] [facility] Stop: 03/11/17 11:29 Last Admin: 01/10/17 16:16 Dose: Not Given Levothyroxine Sodium (Synthroid) 0.[address] [facility] Stop: 03/12/17 07:29 Magnesium Hydroxide (Milk Of Magnesia) 30 ml GT Q72HR PRN PRN Reason: Constipation Stop: 03/11/17 08:32 Metoclopramide HCl (Reglan) [address] [facility] Stop: 03/11/17 12:59 Last Admin: 01/11/17 05:38 Dose: Not Given Midodrine (Proamatine) [address] [facility] Stop: 03/11/17 13:59 Last Admin: 01/10/17 21:32 Dose: Not Given Sodium Phosphate (Fleet Enema) 135 ml RC Q96HR PRN PRN Reason: IF DULCOLAX NOT EFFECTIVE Stop: 03/11/17 08:32 Sucralfate (Carafate) [address] [facility] Stop: 03/11/17 12:59 Last Admin: 01/10/17 21:32 Dose: Not Given Ursodiol (Actigall) [address] [facility] Stop: 03/11/17 11:59 Last Admin: 01/10/17 12:07 Dose: Not Given General: Alert, Oriented x3, No acute distress HEENT: Atraumatic, PERRLA, EOMI Neck: Supple Cardiovascular: Regular rate, Normal S1, Normal S2 Lungs: Clear to auscultation Abdomen: Bowel sounds Extremities: no Clubbing, no Cyanosis, no Edema Assessment/Plan - Assessment Assessment: malfunctioning gtube cirrhosis anemia seizures htn pacemaker - Plan Plan: malfunctioning gtube ... for replacement of GJ tube. cirrhosis anemia seizures htn pacemaker
--- NOTE | 2017-01-11 09:04 | Diagnostic Imaging Report ---
Portable chest x-ray HISTORY: Shortness of breath There is a poor inspiration. The heart appears enlarged. Cardiac pacemaker lead wires project over the right atrium and right ventricle. No focal pulmonary processes. IMPRESSION: 1. No acute focal pulmonary processes 2. Cardiomegaly with pacemaker placement
[2017-01-11] MEDS: Levothyroxine 0.05 Mg Tab GT SCH (09:54)
[2017-01-11] MEDS: Calcium Carb/Vit D 500 mg/200 U Tab GT SCH (09:55)
[2017-01-11] MEDS: Docusate Sodium 100 mg/10 mL UD GT SCH ×3 (09:55→23:08)
[2017-01-11] MEDS: Ferrous Sulfate 300 MG/5 ML UDC GT SCH (09:55)
[2017-01-11] MEDS: Multivitamin w/ Minerals Tab GT SCH (09:55)
--- NOTE | 2017-01-11 12:51 | Diagnostic Imaging Report ---
Upper GI with Gastrografin HISTORY: GJ tube confirmation COMPARISON: None FINDINGS: Licensed Loan Officer view demonstrates generalized gas-filled loops of bowel. Feeding tube is noted. Postsurgical changes of the right pelvis are noted. Severe deformity of the hip joints are seen with marked superior subluxation of the left femoral head in relation to the acetabulum. The second image demonstrates contrast opacification of the stomach. IMPRESSION: Intraluminal confirmation of patient's percutaneous gastrojejunostomy feeding tube. Noted that there was contrast opacification of primarily the stomach. Probable ileus.
[2017-01-11 13:00] LABS: BILIRUBIN,DIRECT 0.02 mg/dL (0.0-0.2)
[2017-01-11] MEDS ORDERED: Diatrizoate Meglumine/Diatri 30 mL Sol PO ONE (13:56)
--- NOTE | 2017-01-11 15:16 | Diagnostic Imaging Report ---
Upper GI (Limited) HISTORY: Gastrostomy tube placement Water-soluble contrast was instilled through the patient's gastrostomy tube. The exam demonstrates contrast within the lumen of the gastric fundus. IMPRESSION: 1. Confirmation of gastrostomy tube within the gastric lumen. 2. Severe chronic deformity and changes involving the pelvis and hip regions.
--- NOTE | 2017-01-11 16:56 | Operative Report ---
DATE OF SURGERY: 01/11/2017 PROCEDURE: Malfunctioning GJ-tube, GJ-tube replaced. CONSENT: Risks, benefits, alternatives, nature, indication, possible outcomes were discussed. Mentioned bleeding, infection, perforation, , disability, cardiopulmonary distress and arrest, missed lesion and cancers, need for surgery, cellulitis, malfunctioning of feeding tube, the patient pulling out the feeding tube. The patient's family expressed understanding and provided informed consent. PREOPERATIVE DIAGNOSES: Dysphagia and malfunctioning GJ tube. POSTOPERATIVE DIAGNOSIS: New GJ tube placed. MEDICATIONS: Provided by anesthesiologist. DESCRIPTION OF PROCEDURE: The patient was placed on her back. The old GJ tube was removed after deflating the internal balloon and pulled out. Using the same gastrocutaneous fistula, we introduced a small UltraSlim pediatric gastroscope through the gastrocutaneous fistula advancing all the way into the jejunum. At this point, a Savary wire was passed through the working channel of scope and the patient repositioned. Scope was then removed over the wire. At this point, a new gastrojejunostomy tube was advanced over the guidewire into the jejunum. The internal balloon was inflated with 10 mL of sterile saline. The outer flange was secured in position. The Savary wire was then slowly removed. COMPLICATIONS: None. FINDINGS: New GJ tube placed. RECOMMENDATIONS: 1. KUB with Gastrografin confirmed placement of a GJ tube tip in the small bowel. 2. If it is in small bowel, may begin using it. 3. Make sure that tube feeds are given through the J port and that medications are given through the G port. Thank you for allowing me to participate. Please call me if any questions. JOB# [id number]
--- NOTE | 2017-01-11 17:06 | Operative Report ---
DATE OF SURGERY: 01/11/2017 INPATIENT GASTROINTESTINAL PROCEDURE NAME OF PROCEDURE: GJ tube replacement. REASON FOR PROCEDURE: Malfunctioning GJ-tube. CONSENT: Risks, benefits, alternatives, nature, indication, possible outcomes were discussed. Mentioned bleeding, infection, perforation, , disability, cardiopulmonary distress and arrest, missed lesion and cancers, need for surgery, the patient pulling out the feeding tube, malfunctioning feeding tube, cellulitis. The patient's family expressed understanding and provided informed consent. PREOPERATIVE DIAGNOSIS: Malfunctioning GJ tube. POSTOPERATIVE DIAGNOSIS: New GJ tube replaced. MEDICATIONS: None. DESCRIPTION OF PROCEDURE: The patient was placed on her back. The old PEG tube was identified and was removed. After deflating the internal balloon, the gastrocutaneous fistula was identified. Using the UltraSlim pediatric gastroscope, we advanced it through the gastrocutaneous fistula entering into the jejunum. We advanced the Savary wire and left in place. We pulled out the endoscope over the Savary wire, readvanced the GJ tube into the jejunum. The balloon was inflated with 10 mL of sterile saline. The outer phalange was secured in position. Procedure was then completed. COMPLICATIONS: None. FINDINGS: New GJ tube placement in small bowel. RECOMMENDATIONS: 1. KUB with Gastrografin confirmed the tip is in the small bowel. 2. If it is in the small bowel, may begin using it, G port for meds and J port for feeding. Thank you for allowing me to participate. Please call me if any questions. JOB# [id number]
[2017-01-12] MEDS ORDERED: Diatrizoate Meglumine/Diatri 30 mL Sol PO ONE (03:18)
[2017-01-12 06:10] LABS: % BASOPHILS 0.1 % (0.0-2.0); % EOSINOPHILS 1.3 % (0.0-5.0); % LYMPHOCYTES 18.6 % (20.0-50.0); % MONOCYTES 6.8 % (2.0-10.0); % NEUTROPHILS 73.2 % (40.0-80.0); HEMOGLOBIN 10.8 gm/dL (12-16); MEAN CELL VOLUME 100.9 fl (81-100); MEAN CORPUSCULAR HEMOGLOBIN 34.2 pg (27.0-31.0); MEAN CORPUSCULAR HGB CONC 33.9 pg (28.0-36.0); MEAN PLATELET VOLUME 8.9 fl; NEUTROPHILE ABSOLUTE 5.9 Th/cmm (1.8-8.0); PLATELET COUNT 150 Th/cmm (150-400); RED BLOOD COUNT 3.17 Mil/cmm (3.80-5.10); RED CELL DISTRIBUTION WIDTH 14.9 % (11.5-20.0)
[2017-01-12 06:22] LABS: HEMATOCRIT 31.9 % (41.0-60); WHITE BLOOD COUNT 8.1 Th/cmm (4.8-10.8)
[2017-01-12 06:46] LABS: ALKALINE PHOSPHATASE 550 U/L (34-104); ANION GAP 7.7 (7.0-16.0); BILIRUBIN,TOTAL 0.2 mg/dL (0.3-1.0); BUN - UREA NITROGEN 9 mg/dL (7-25); CALCIUM SERUM 9.3 mg/dL (8.6-10.3); CARBON DIOXIDE 27.2 mEq/L (21.0-31.0); CHLORIDE 121 mEq/L (98-107); CREATININE - SERUM 0.5 mg/dL (0.6-1.2); GLUCOSE 91 mg/dL (70-105); POTASSIUM SERUM 3.9 mEq/L (3.5-5.1); SGOT 90 U/L (13-39); SGPT/ALT 221 U/L (7-52); SODIUM SERUM 152 mEq/L (136-145)
--- NOTE | 2017-01-12 08:16 | General Progress Note ---
Subjective - Review of Systems Service Date: 01/12/17 Subjective: Awake,alert,afebrile. no acute distress. s/p replacement of the GJ tube yesterday. Objective - Results Result Diagrams: 01/12/17 05:44 01/12/17 05:44 Recent Labs: Laboratory Last Values WBC 8.1 Th/cmm (4.8-10.8) D 01/12/17 05:44 RBC 3.17 Mil/cmm (3.80-5.10) L 01/12/17 05:44 Hgb 10.8 gm/dL (12-16) L 01/12/17 05:44 Hct 31.9 % (41.0-60) L D 01/12/17 05:44 MCV 100.9 fl (81-100) H 01/12/17 05:44 MCH 34.2 pg (27.0-31.0) H 01/12/17 05:44 MCHC Differential 33.9 pg (28.0-36.0) 01/12/17 05:44 RDW 14.9 % (11.5-20.0) 01/12/17 05:44 Plt Count 150 Th/cmm (150-400) 01/12/17 05:44 MPV 8.9 fl 01/12/17 05:44 Neutrophils % 73.2 % (40.0-80.0) 01/12/17 05:44 Lymphocytes % 18.6 % (20.0-50.0) L 01/12/17 05:44 Monocytes % 6.8 % (2.0-10.0) 01/12/17 05:44 Eosinophils % 1.3 % (0.0-5.0) 01/12/17 05:44 Basophils % 0.1 % (0.0-2.0) 01/12/17 05:44 PT 10.4 SECONDS (9.5-11.5) 01/11/17 04:45 INR 1.00 (0.5-1.4) 01/11/17 04:45 PTT (Actin FS) 31.5 SECONDS (26.0-38.0) 01/11/17 04:45 Sodium 152 mEq/L (136-145) H 01/12/17 05:44 Potassium 3.9 mEq/L (3.5-5.1) 01/12/17 05:44 Chloride 121 mEq/L (98-107) H 01/12/17 05:44 Carbon Dioxide 27.2 mEq/L (21.0-31.0) 01/12/17 05:44 Anion Gap 7.7 (7.0-16.0) 01/12/17 05:44 BUN 9 mg/dL (7-25) 01/12/17 05:44 Creatinine 0.5 mg/dL (0.6-1.2) L 01/12/17 05:44 Est GFR ( Amer) > 60.0 ml/min (>90) 01/12/17 05:44 Est GFR (Non-Af Amer) > 60.0 ml/min 01/12/17 05:44 BUN/Creatinine Ratio 18.0 01/12/17 05:44 Glucose 91 mg/dL (70-105) 01/12/17 05:44 POC Glucose 98 MG/DL (70 - 105) 01/11/17 10:26 Calcium 9.3 mg/dL (8.6-10.3) 01/12/17 05:44 Iron 218 ug/dL (27-159) H 01/10/17 00:40 TIBC 255 ug/dL (250-450) 01/10/17 00:40 Iron Saturation 85 % (15-55) H 01/10/17 00:40 Unsaturated IBC 37 ug/dL (131-425) L 01/10/17 00:40 Total Bilirubin 0.2 mg/dL (0.3-1.0) L 01/12/17 05:44 Direct Bilirubin 0.02 mg/dL (0.0-0.2) 01/11/17 04:45 AST 90 U/L (13-39) H 01/12/17 05:44 ALT 221 U/L (7-52) H 01/12/17 05:44 Alkaline Phosphatase 550 U/L (34-104) H 01/12/17 05:44 Ammonia 78 umol/L (16-53) H 01/10/17 00:40 Total Protein 6.5 gm/dL (6.0-8.3) 01/12/17 05:44 Albumin 3.3 gm/dL (3.7-5.3) L 01/12/17 05:44 Globulin 3.2 gm/dL 01/12/17 05:44 Albumin/Globulin Ratio 1.0 (1.0-1.8) 01/12/17 05:44 Amylase 115 U/L (29-103) H 01/10/17 00:40 Tumor Marker AFP 5.7 ng/mL (0.0-8.3) 01/10/17 11:53 TSH 2.12 uIU/ml (0.34-5.60) 01/10/17 00:40 Urine Source CLEAN C 01/10/17 02:45 Urine Color YELLOW 01/10/17 02:45 Urine Clarity HAZY (CLEAR) 01/10/17 02:45 Urine pH 8.0 (4.6 - 8.0) 01/10/17 02:45 Ur Specific [place] 1.010 (1.005-1.030) 01/10/17 02:45 Urine Protein TRACE mg/dL (NEGATIVE) 01/10/17 02:45 Urine Glucose (UA) NEGATIVE mg/dL (NEGATIVE) 01/10/17 02:45 Urine Ketones NEGATIVE mg/dL (NEGATIVE) 01/10/17 02:45 Urine Blood NEGATIVE (NEGATIVE) 01/10/17 02:45 Urine Nitrate NEGATIVE (NEGATIVE) 01/10/17 02:45 Urine Bilirubin NEGATIVE (NEGATIVE) 01/10/17 02:45 Urine Urobilinogen 0.2 E.U./dL (0.2 - 1.0) 01/10/17 02:45 Ur Leukocyte Esterase NEGATIVE (NEGATIVE) 01/10/17 02:45 Urine RBC 0-2 /hpf (0-5) 01/10/17 02:45 Urine WBC 0-2 /hpf (0-5) 01/10/17 02:45 Ur Epithelial Cells OCCASIONAL /lpf (FEW) 01/10/17 02:45 Amorphous Sediment MODERATE PHOSPHATES (NONE SEEN) 01/10/17 02:45 Urine Bacteria FEW /hpf (NONE SEEN) 01/10/17 02:45 Salicylates < 25.0 mg/L (30.0-100.0) L 01/10/17 08:23 Acetaminophen < 10.0 ug/mL (10.0-30.0) L 01/10/17 08:23 - Physical Exam Vitals and I&O: Vital Signs Temp 97.6 F 01/12/17 07:40 Pulse 91 01/12/17 07:40 Resp 16 01/12/17 07:40 BP 106/59 01/12/17 07:40 Pulse Ox 99 01/12/17 07:40 Intake & Output 01/11/17 01/12/17 01/12/17 18:59 06:59 18:59 Intake Total 842.5 756.25 Balance 842.5 756.25 Weight (lbs) 51.846 kg 54.686 kg Intake: Intake, IV Amount 842.5 756.25 D5-0.9%Ns 1,000 ml @ 75 842.5 756.25 mls/hr IV .[id number] [facility] Rx #:[id number] Oral 0 Other: # Voids 4 2 # Bowel Movements 1 Active Medications: Current Medications Acetaminophen (Tylenol) 650 mg GT Q4HR PRN PRN Reason: Pain or Fever >101 Stop: 03/11/17 08:32 Acetazolamide (Diamox) 250 mg GT MoFr [facility] Stop: 03/14/17 08:59 Alendronate Sodium (Fosamax) 70 mg PO QFRI@0630 [facility] Stop: 03/14/17 06:29 Ascorbic Acid (Vitamin C) 500 mg GT DAILY [facility] Stop: 03/11/17 11:59 Last Admin: 01/11/17 09:54 Dose: Not Given Bisacodyl (Dulcolax 10 Mg Supp) 10 mg RC Q96HR PRN PRN Reason: Constipation Stop: 03/11/17 08:32 Calcium Carbonate (Tums) 500 mg GT Q6HR PRN PRN Reason: Indigestion Stop: 03/11/17 08:32 Calcium/Vitamin D (Oscal W/Vitamin D) 1 tab GT DAILY [facility] Stop: 03/11/17 11:59 Last Admin: 01/11/17 09:55 Dose: Not Given Docusate Sodium (Colace) 100 mg GT TID [facility] Stop: 03/11/17 13:59 Last Admin: 01/11/17 23:08 Dose: Not Given Ferrous Sulfate (Iron) 220 mg GT DAILY [facility] Stop: 03/11/17 11:59 Last Admin: 01/11/17 09:55 Dose: Not Given Fludrocortisone Acetate (Florinef) 0.1 mg GT DAILY [facility] Stop: 03/11/17 11:59 Last Admin: 01/11/17 09:55 Dose: Not Given Folic Acid (Folate) 1 mg GT DAILY [facility] Stop: 03/11/17 11:59 Last Admin: 01/11/17 09:55 Dose: Not Given Dextrose/Sodium Chloride (D5-0.9%Ns) 1,000 mls @ 75 mls/hr IV .[id number] [facility] Stop: 03/11/17 15:24 Last Infusion: 01/12/17 08:06 Dose: 75 mls/hr Lacosamide (Vimpat) 200 mg GT BID [facility] Stop: 03/11/17 11:29 Last Admin: 01/11/17 16:24 Dose: Not Given Levothyroxine Sodium (Synthroid) 0.05 mg GT QDAC [facility] Stop: 03/12/17 07:29 Last Admin: 01/11/17 09:54 Dose: Not Given Magnesium Hydroxide (Milk Of Magnesia) 30 ml GT Q72HR PRN PRN Reason: Constipation Stop: 03/11/17 08:32 Metoclopramide HCl (Reglan) 10 mg GT Q8HR [facility] Stop: 03/11/17 12:59 Last Admin: 01/12/17 05:06 Dose: 10 mg Midodrine (Proamatine) 5 mg GT TID [facility] Stop: 03/11/17 13:59 Last Admin: 01/11/17 23:08 Dose: Not Given Sodium Phosphate (Fleet Enema) 135 ml RC Q96HR PRN PRN Reason: IF DULCOLAX NOT EFFECTIVE Stop: 03/11/17 08:32 Sucralfate (Carafate) 1 gm GT QID [facility] Stop: 03/11/17 12:59 Last Admin: 01/11/17 23:09 Dose: Not Given Ursodiol (Actigall) 300 mg GT DAILY [facility] Stop: 03/11/17 11:59 Last Admin: 01/11/17 09:56 Dose: Not Given General: Alert, Oriented x3, No acute distress HEENT: Atraumatic, PERRLA, EOMI Neck: Supple Cardiovascular: Regular rate, Normal S1, Normal S2 Lungs: Clear to auscultation Abdomen: Bowel sounds Extremities: no Clubbing, no Cyanosis, no Edema Assessment/Plan - Assessment Assessment: malfunctioning gtube cirrhosis anemia seizures htn pacemaker - Plan Plan: malfunctioning gtube ... for replacement of GJ tube. cirrhosis anemia seizures htn pacemaker Nutritional Asmnt/Malnutr-PDOC - Dietary Evaluation Malnutrition Findings (Please click <Entered> for more info): Nutritional Asmnt/Malnutrition Start: 01/11/17 12: 05 Text: Status: Complete Freq: Document 01/11/17 12:05 TIFFANI (Rec: 01/11/17 12:27 [email or web address]) Nutritional Asmnt/Malnutrition Patient General Information Nutritional Screening High Risk Screening Diagnosis Malfunctioning g-tube, cirrhosis, anemia, seizures, HTN, pacemaker Pertinent Medical Hx/Surgical Hx CAD, HTN, hyperlipidemia, seizure, cerebral palsy, dementia, gastritis, peptic ulcer, chronic liver disease, cholecystectomy Subjective Information 41 year old female. Pt was away for EGD during visit. Spoke to DONNA Nesbitt, j-tube replacement pending. Current Diet Order/ Nutrition Support NPO Pertinent Medications Vitamin C, dulcolax, Tums, Oscal W/Vitamin D, D5-0.9%ns, Colace, Iron, Folate, MOM, Reglan, Fleet Enema, Carafate Pertinent Labs AST 110H, ALT 249H, alkaline phosphatase 574H, ammonia 78H Nutritional Hx/Data Height 1.37 m Height (Calculated Centimeters) 137.2 Current Weight (lbs) 51.846 kg Weight (Calculated Kilograms) 51.8 Weight (Calculated Grams) 01640.6 Weight Status Overweight GI Symptoms Difficult in: Chewing Swallowing Skin Integrity/Comment: [place] 13. Left neck reddened, skin intact. Estimated Nutritional Goals BEE in Kcals: Using Current wt Calories/Kcals/Kg CBW 114.3lb/52kg Kcals Calculated 1144-1404kcal (22-27kcal/kg) Protein: Using Current wt Protein Calculated 31-42g (0.6-0.8g/kg) Fluid: ml 1144-1404ml (1ml/kcal) Nutritional Problem 2. Problem Problem Inadequate intake from enteral nutrition related to Etiology j-tube malfunction aeb Signs/Symptoms: pending replacement, currently NPO 1. Problem Problem Altered GI function related to Etiology chronic liver disease aeb Signs/Symptoms: AST 110H, ALT 249H, alkaline phosphatase 574H, ammonia 78H Intervention/Recommendation Comments 1. When medically feasible to resume feeding, recommend Fibersource at 40ml/hr x 24hrs , providing 960ml total volume , 1152kcal, 52g protein. Expected Outcomes/Goals Expected Outcomes/Goals 1. Pt to resume tube feeding and meet 100% of estimated nutritinoal needs with tolerance.
[2017-01-12] MEDS: Multivitamin w/ Minerals Tab GT SCH (09:50)
[2017-01-12] MEDS: Levothyroxine 0.05 Mg Tab GT SCH (09:50)
[2017-01-12] MEDS: Dextrose 5% 1,000 ML IV SCH ×2 (09:51→23:05)
[2017-01-12] MEDS: Calcium Carb/Vit D 500 mg/200 U Tab GT SCH (09:51)
[2017-01-12] MEDS: Ferrous Sulfate 300 MG/5 ML UDC GT SCH (09:53)
[2017-01-12] MEDS: Docusate Sodium 100 mg/10 mL UD GT SCH ×3 (09:53→21:53)
[2017-01-13 05:18] LABS: ANTITRYPSIN SERUM A1 137 mg/dL (90-200); F1 ACTIN-SMOOTH MUSC IGG 16 Units (0-19); FERRITIN 2237 ng/mL (15-150); HEP B CORE IGM Negative (Negative); HEP C ANTIBODY <0.1 s/co ratio (0.0-0.9); IRON SATURATION 88 % (15-55); TIBC (LCI) 244 ug/dL (250-450); UIBC 30 ug/dL (131-425)
[2017-01-13] MEDS: Levothyroxine 0.05 Mg Tab GT SCH (06:56)
--- NOTE | 2017-01-13 07:09 | Diagnostic Imaging Report ---
Upper GI (Limited) HISTORY: Gastrostomy tube placement Water-soluble contrast was instilled into the patient's gastrostomy tube. The exam demonstrates opacification of the gastric lumen with flow contrast small bowel. IMPRESSION: 1. Confirmation of gastrostomy tube within the gastric lumen.
[2017-01-13 07:33] LABS: % BASOPHILS 0.5 % (0.0-2.0); % EOSINOPHILS 4.7 % (0.0-5.0); % LYMPHOCYTES 37.3 % (20.0-50.0); % MONOCYTES 13.5 % (2.0-10.0); HEMATOCRIT 30.4 % (41.0-60); HEMOGLOBIN 10.5 gm/dL (12-16); MEAN CELL VOLUME 100.4 fl (81-100); MEAN CORPUSCULAR HEMOGLOBIN 34.7 pg (27.0-31.0); MEAN CORPUSCULAR HGB CONC 34.5 pg (28.0-36.0); MEAN PLATELET VOLUME 9.2 fl; NEUTROPHILE ABSOLUTE 3.1 Th/cmm (1.8-8.0); PLATELET COUNT 133 Th/cmm (150-400); RED BLOOD COUNT 3.03 Mil/cmm (3.80-5.10); RED CELL DISTRIBUTION WIDTH 14.8 % (11.5-20.0); WHITE BLOOD COUNT 6.8 Th/cmm (4.8-10.8)
[2017-01-13 07:52] LABS: ANION GAP 6.9 (7.0-16.0); BUN - UREA NITROGEN 8 mg/dL (7-25); CALCIUM SERUM 9.1 mg/dL (8.6-10.3); CARBON DIOXIDE 31.5 mEq/L (21.0-31.0); CHLORIDE 110 mEq/L (98-107); CREATININE - SERUM 0.5 mg/dL (0.6-1.2); GLUCOSE 89 mg/dL (70-105); POTASSIUM SERUM 3.4 mEq/L (3.5-5.1); SODIUM SERUM 145 mEq/L (136-145)
--- NOTE | 2017-01-13 08:45 | General Progress Note ---
Subjective - Review of Systems Service Date: 01/13/17 Subjective: Awake,alert,afebrile. no acute distress. s/p replacement of the GJ tube yesterday. still having residuals Objective - Results Result Diagrams: 01/13/17 07:15 01/13/17 07:15 Recent Labs: Laboratory Last Values WBC 6.8 Th/cmm (4.8-10.8) 01/13/17 07:15 RBC 3.03 Mil/cmm (3.80-5.10) L 01/13/17 07:15 Hgb 10.5 gm/dL (12-16) L 01/13/17 07:15 Hct 30.4 % (41.0-60) L 01/13/17 07:15 MCV 100.4 fl (81-100) H 01/13/17 07:15 MCH 34.7 pg (27.0-31.0) H 01/13/17 07:15 MCHC Differential 34.5 pg (28.0-36.0) 01/13/17 07:15 RDW 14.8 % (11.5-20.0) 01/13/17 07:15 Plt Count 133 Th/cmm (150-400) L 01/13/17 07:15 MPV 9.2 fl 01/13/17 07:15 Neutrophils % 44.0 % (40.0-80.0) 01/13/17 07:15 Lymphocytes % 37.3 % (20.0-50.0) 01/13/17 07:15 Monocytes % 13.5 % (2.0-10.0) H 01/13/17 07:15 Eosinophils % 4.7 % (0.0-5.0) 01/13/17 07:15 Basophils % 0.5 % (0.0-2.0) 01/13/17 07:15 PT 10.4 SECONDS (9.5-11.5) 01/11/17 04:45 INR 1.00 (0.5-1.4) 01/11/17 04:45 PTT (Actin FS) 31.5 SECONDS (26.0-38.0) 01/11/17 04:45 Sodium 145 mEq/L (136-145) 01/13/17 07:15 Potassium 3.4 mEq/L (3.5-5.1) L 01/13/17 07:15 Chloride 110 mEq/L (98-107) H 01/13/17 07:15 Carbon Dioxide 31.5 mEq/L (21.0-31.0) H 01/13/17 07:15 Anion Gap 6.9 (7.0-16.0) L 01/13/17 07:15 BUN 8 mg/dL (7-25) 01/13/17 07:15 Creatinine 0.5 mg/dL (0.6-1.2) L 01/13/17 07:15 Est GFR ( Amer) > 60.0 ml/min (>90) 01/13/17 07:15 Est GFR (Non-Af Amer) > 60.0 ml/min 01/13/17 07:15 BUN/Creatinine Ratio 16.0 01/13/17 07:15 Glucose 89 mg/dL (70-105) 01/13/17 07:15 POC Glucose 98 MG/DL (70 - 105) 01/11/17 10:26 Calcium 9.1 mg/dL (8.6-10.3) 01/13/17 07:15 Iron 214 ug/dL (27-159) H 01/10/17 11:53 TIBC 244 ug/dL (250-450) L 01/10/17 11:53 Iron Saturation 88 % (15-55) H 01/10/17 11:53 Unsaturated IBC 30 ug/dL (131-425) L 01/10/17 11:53 Ferritin 2237 ng/mL (15-150) H 01/10/17 11:53 Total Bilirubin 0.2 mg/dL (0.3-1.0) L 01/12/17 05:44 Direct Bilirubin 0.02 mg/dL (0.0-0.2) 01/11/17 04:45 AST 90 U/L (13-39) H 01/12/17 05:44 ALT 221 U/L (7-52) H 01/12/17 05:44 Alkaline Phosphatase 550 U/L (34-104) H 01/12/17 05:44 Ammonia 78 umol/L (16-53) H 01/10/17 00:40 Total Protein 6.5 gm/dL (6.0-8.3) 01/12/17 05:44 Albumin 3.3 gm/dL (3.7-5.3) L 01/12/17 05:44 Globulin 3.2 gm/dL 01/12/17 05:44 Albumin/Globulin Ratio 1.0 (1.0-1.8) 01/12/17 05:44 Xnozm-0-Cotxdvvbsqj 137 mg/dL (90-200) 01/10/17 11:53 Amylase 115 U/L (29-103) H 01/10/17 00:40 Tumor Marker AFP 5.7 ng/mL (0.0-8.3) 01/10/17 11:53 TSH 2.12 uIU/ml (0.34-5.60) 01/10/17 00:40 Urine Source CLEAN C 01/10/17 02:45 Urine Color YELLOW 01/10/17 02:45 Urine Clarity HAZY (CLEAR) 01/10/17 02:45 Urine pH 8.0 (4.6 - 8.0) 01/10/17 02:45 Ur Specific [place] 1.010 (1.005-1.030) 01/10/17 02:45 Urine Protein TRACE mg/dL (NEGATIVE) 01/10/17 02:45 Urine Glucose (UA) NEGATIVE mg/dL (NEGATIVE) 01/10/17 02:45 Urine Ketones NEGATIVE mg/dL (NEGATIVE) 01/10/17 02:45 Urine Blood NEGATIVE (NEGATIVE) 01/10/17 02:45 Urine Nitrate NEGATIVE (NEGATIVE) 01/10/17 02:45 Urine Bilirubin NEGATIVE (NEGATIVE) 01/10/17 02:45 Urine Urobilinogen 0.2 E.U./dL (0.2 - 1.0) 01/10/17 02:45 Ur Leukocyte Esterase NEGATIVE (NEGATIVE) 01/10/17 02:45 Urine RBC 0-2 /hpf (0-5) 01/10/17 02:45 Urine WBC 0-2 /hpf (0-5) 01/10/17 02:45 Ur Epithelial Cells OCCASIONAL /lpf (FEW) 01/10/17 02:45 Amorphous Sediment MODERATE PHOSPHATES (NONE SEEN) 01/10/17 02:45 Urine Bacteria FEW /hpf (NONE SEEN) 01/10/17 02:45 Salicylates < 25.0 mg/L (30.0-100.0) L 01/10/17 08:23 Acetaminophen < 10.0 ug/mL (10.0-30.0) L 01/10/17 08:23 Anti-Mitochondrial Ab 10.8 Units (0.0-20.0) 01/10/17 11:53 Smooth Muscle IgG Ab 16 Units (0-19) 01/10/17 11:53 Hepatitis A IgM Ab Negative (Negative) 01/10/17 11:53 Hep Bs Antigen Negative (Negative) 01/10/17 11:53 Hep B Core IgM Ab Negative (Negative) 01/10/17 11:53 Hepatitis C Antibody <0.1 s/co ratio (0.0-0.9) 01/10/17 11:53 - Physical Exam Vitals and I&O: Vital Signs Temp 98.9 F 01/13/17 04:00 Pulse 82 01/13/17 04:00 Resp 18 01/13/17 04:00 BP 121/63 01/13/17 04:00 Pulse Ox 97 01/13/17 04:00 Intake & Output 01/12/17 01/13/17 01/13/17 18:59 06:59 18:59 Intake Total 756.25 2048.75 Output Total 255 Balance 756.25 1793.75 Weight (lbs) 54.431 kg Intake: Intake, IV Amount 756.25 1518.75 D5-0.9%Ns 1,000 ml @ 75 756.25 mls/hr IV .[id number] [facility] Rx #:[id number] Dextrose 5% 1,000 ml @ 75 1518.75 mls/hr IV .[id number] [facility] Rx#:[id number] TPN/PPN 210 Other 320 Output: Stool 255 Other: # Voids 2 # Bowel Movements 1 Active Medications: Current Medications Acetaminophen (Tylenol) 650 mg GT Q4HR PRN PRN Reason: Pain or Fever >101 Stop: 03/11/17 08:32 Acetazolamide (Diamox) 250 mg GT MoFr [facility] Stop: 03/14/17 08:59 Alendronate Sodium (Fosamax) 70 mg PO QFRI@0630 [facility] Stop: 03/14/17 06:29 Ascorbic Acid (Vitamin C) 500 mg GT DAILY [facility] Stop: 03/11/17 11:59 Last Admin: 01/12/17 09:51 Dose: 500 mg Bisacodyl (Dulcolax 10 Mg Supp) 10 mg RC Q96HR PRN PRN Reason: Constipation Stop: 03/11/17 08:32 Calcium Carbonate (Tums) 500 mg GT Q6HR PRN PRN Reason: Indigestion Stop: 03/11/17 08:32 Calcium/Vitamin D (Oscal W/Vitamin D) 1 tab GT DAILY [facility] Stop: 03/11/17 11:59 Last Admin: 01/12/17 09:51 Dose: 1 tab Docusate Sodium (Colace) 100 mg GT TID [facility] Stop: 03/11/17 13:59 Last Admin: 01/12/17 21:53 Dose: 100 mg Ferrous Sulfate (Iron) 220 mg GT DAILY [facility] Stop: 03/11/17 11:59 Last Admin: 01/12/17 09:53 Dose: 220 mg Fludrocortisone Acetate (Florinef) 0.1 mg GT DAILY [facility] Stop: 03/11/17 11:59 Last Admin: 01/12/17 09:51 Dose: 0.1 mg Folic Acid (Folate) 1 mg GT DAILY [facility] Stop: 03/11/17 11:59 Last Admin: 01/12/17 09:51 Dose: 1 mg Potassium Chloride 40 meq/ (Dextrose) 1,020 mls @ 75 mls/hr IV .[id number] [facility] Stop: 03/14/17 08:24 Lacosamide (Vimpat) 200 mg GT BID [facility] Stop: 03/11/17 11:29 Last Admin: 01/12/17 17:45 Dose: 200 mg Levothyroxine Sodium (Synthroid) 0.05 mg GT QDAC [facility] Stop: 03/12/17 07:29 Last Admin: 01/13/17 06:56 Dose: 0.05 mg Magnesium Hydroxide (Milk Of Magnesia) 30 ml GT Q72HR PRN PRN Reason: Constipation Stop: 03/11/17 08:32 Metoclopramide HCl (Reglan) 10 mg GT Q8HR [facility] Stop: 03/11/17 12:59 Last Admin: 01/13/17 05:28 Dose: Not Given Midodrine (Proamatine) 5 mg GT TID [facility] Stop: 03/11/17 13:59 Last Admin: 01/12/17 21:53 Dose: 5 mg Sodium Phosphate (Fleet Enema) 135 ml RC Q96HR PRN PRN Reason: IF DULCOLAX NOT EFFECTIVE Stop: 03/11/17 08:32 Sucralfate (Carafate) 1 gm GT QID [facility] Stop: 03/11/17 12:59 Last Admin: 01/12/17 21:53 Dose: 1 gm Ursodiol (Actigall) 300 mg GT DAILY [facility] Stop: 03/11/17 11:59 Last Admin: 01/12/17 17:59 Dose: 300 mg General: Alert, Oriented x3, No acute distress HEENT: Atraumatic, PERRLA, EOMI Neck: Supple Cardiovascular: Regular rate, Normal S1, Normal S2 Lungs: Clear to auscultation Abdomen: Bowel sounds Extremities: no Clubbing, no Cyanosis, no Edema - Procedures Procedures: Procedures Procedure Code Date CHANGE FEEDING DEVICE IN LOW INTEST TRACT, IMPREGNATING TANK OPERATOR APPROACH [id number] 01/10/17 REPLACE G-J TUBE PERC 19651 01/10/17 Assessment/Plan - Assessment Assessment: malfunctioning gtube cirrhosis anemia seizures htn pacemaker - Plan Plan: malfunctioning gtube now replaced of GJ tube ... still having residuals. will add reglan. cirrhosis anemia seizures htn pacemaker Nutritional Asmnt/Malnutr-PDOC - Dietary Evaluation Malnutrition Findings (Please click <Entered> for more info): Nutritional Asmnt/Malnutrition Start: 01/11/17 12: 05 Text: Status: Complete Freq: Document 01/11/17 12:05 TIFFANI (Rec: 01/11/17 12:27 [email or web address]) Nutritional Asmnt/Malnutrition Patient General Information Nutritional Screening High Risk Screening Diagnosis Malfunctioning g-tube, cirrhosis, anemia, seizures, HTN, pacemaker Pertinent Medical Hx/Surgical Hx CAD, HTN, hyperlipidemia, seizure, cerebral palsy, dementia, gastritis, peptic ulcer, chronic liver disease, cholecystectomy Subjective Information 41 year old female. Pt was away for EGD during visit. Spoke to DONNA Nesbitt, j-tube replacement pending. Current Diet Order/ Nutrition Support NPO Pertinent Medications Vitamin C, dulcolax, Tums, Oscal W/Vitamin D, D5-0.9%ns, Colace, Iron, Folate, MOM, Reglan, Fleet Enema, Carafate Pertinent Labs AST 110H, ALT 249H, alkaline phosphatase 574H, ammonia 78H Nutritional Hx/Data Height 1.37 m Height (Calculated Centimeters) 137.2 Current Weight (lbs) 51.846 kg Weight (Calculated Kilograms) 51.8 Weight (Calculated Grams) 89302.6 Weight Status Overweight GI Symptoms Difficult in: Chewing Swallowing Skin Integrity/Comment: [place] 13. Left neck reddened, skin intact. Estimated Nutritional Goals BEE in Kcals: Using Current wt Calories/Kcals/Kg CBW 114.3lb/52kg Kcals Calculated 1144-1404kcal (22-27kcal/kg) Protein: Using Current wt Protein Calculated 31-42g (0.6-0.8g/kg) Fluid: ml 1144-1404ml (1ml/kcal) Nutritional Problem 2. Problem Problem Inadequate intake from enteral nutrition related to Etiology j-tube malfunction aeb Signs/Symptoms: pending replacement, currently NPO 1. Problem Problem Altered GI function related to Etiology chronic liver disease aeb Signs/Symptoms: AST 110H, ALT 249H, alkaline phosphatase 574H, ammonia 78H Intervention/Recommendation Comments 1. When medically feasible to resume feeding, recommend Fibersource at 40ml/hr x 24hrs , providing 960ml total volume , 1152kcal, 52g protein. Expected Outcomes/Goals Expected Outcomes/Goals 1. Pt to resume tube feeding and meet 100% of estimated nutritinoal needs with tolerance.
--- NOTE | 2017-01-13 10:38 | GI Progress Note ---
Subjective - Review of Systems Subjective: PT WITH HIGH RESIDUALS Objective - Results Result Diagrams: 01/13/17 07:15 01/13/17 07:15 Recent Labs: Laboratory Last Values WBC 6.8 Th/cmm (4.8-10.8) 01/13/17 07:15 RBC 3.03 Mil/cmm (3.80-5.10) L 01/13/17 07:15 Hgb 10.5 gm/dL (12-16) L 01/13/17 07:15 Hct 30.4 % (41.0-60) L 01/13/17 07:15 MCV 100.4 fl (81-100) H 01/13/17 07:15 MCH 34.7 pg (27.0-31.0) H 01/13/17 07:15 MCHC Differential 34.5 pg (28.0-36.0) 01/13/17 07:15 RDW 14.8 % (11.5-20.0) 01/13/17 07:15 Plt Count 133 Th/cmm (150-400) L 01/13/17 07:15 MPV 9.2 fl 01/13/17 07:15 Neutrophils % 44.0 % (40.0-80.0) 01/13/17 07:15 Lymphocytes % 37.3 % (20.0-50.0) 01/13/17 07:15 Monocytes % 13.5 % (2.0-10.0) H 01/13/17 07:15 Eosinophils % 4.7 % (0.0-5.0) 01/13/17 07:15 Basophils % 0.5 % (0.0-2.0) 01/13/17 07:15 PT 10.4 SECONDS (9.5-11.5) 01/11/17 04:45 INR 1.00 (0.5-1.4) 01/11/17 04:45 PTT (Actin FS) 31.5 SECONDS (26.0-38.0) 01/11/17 04:45 Sodium 145 mEq/L (136-145) 01/13/17 07:15 Potassium 3.4 mEq/L (3.5-5.1) L 01/13/17 07:15 Chloride 110 mEq/L (98-107) H 01/13/17 07:15 Carbon Dioxide 31.5 mEq/L (21.0-31.0) H 01/13/17 07:15 Anion Gap 6.9 (7.0-16.0) L 01/13/17 07:15 BUN 8 mg/dL (7-25) 01/13/17 07:15 Creatinine 0.5 mg/dL (0.6-1.2) L 01/13/17 07:15 Est GFR ( Amer) > 60.0 ml/min (>90) 01/13/17 07:15 Est GFR (Non-Af Amer) > 60.0 ml/min 01/13/17 07:15 BUN/Creatinine Ratio 16.0 01/13/17 07:15 Glucose 89 mg/dL (70-105) 01/13/17 07:15 POC Glucose 98 MG/DL (70 - 105) 01/11/17 10:26 Calcium 9.1 mg/dL (8.6-10.3) 01/13/17 07:15 Iron 214 ug/dL (27-159) H 01/10/17 11:53 TIBC 244 ug/dL (250-450) L 01/10/17 11:53 Iron Saturation 88 % (15-55) H 01/10/17 11:53 Unsaturated IBC 30 ug/dL (131-425) L 01/10/17 11:53 Ferritin 2237 ng/mL (15-150) H 01/10/17 11:53 Total Bilirubin 0.2 mg/dL (0.3-1.0) L 01/12/17 05:44 Direct Bilirubin 0.02 mg/dL (0.0-0.2) 01/11/17 04:45 AST 90 U/L (13-39) H 01/12/17 05:44 ALT 221 U/L (7-52) H 01/12/17 05:44 Alkaline Phosphatase 550 U/L (34-104) H 01/12/17 05:44 Ammonia 78 umol/L (16-53) H 01/10/17 00:40 Total Protein 6.5 gm/dL (6.0-8.3) 01/12/17 05:44 Albumin 3.3 gm/dL (3.7-5.3) L 01/12/17 05:44 Globulin 3.2 gm/dL 01/12/17 05:44 Albumin/Globulin Ratio 1.0 (1.0-1.8) 01/12/17 05:44 Gdtaf-0-Ghszgrocmam 137 mg/dL (90-200) 01/10/17 11:53 Amylase 115 U/L (29-103) H 01/10/17 00:40 Tumor Marker AFP 5.7 ng/mL (0.0-8.3) 01/10/17 11:53 TSH 2.12 uIU/ml (0.34-5.60) 01/10/17 00:40 Urine Source CLEAN C 01/10/17 02:45 Urine Color YELLOW 01/10/17 02:45 Urine Clarity HAZY (CLEAR) 01/10/17 02:45 Urine pH 8.0 (4.6 - 8.0) 01/10/17 02:45 Ur Specific [place] 1.010 (1.005-1.030) 01/10/17 02:45 Urine Protein TRACE mg/dL (NEGATIVE) 01/10/17 02:45 Urine Glucose (UA) NEGATIVE mg/dL (NEGATIVE) 01/10/17 02:45 Urine Ketones NEGATIVE mg/dL (NEGATIVE) 01/10/17 02:45 Urine Blood NEGATIVE (NEGATIVE) 01/10/17 02:45 Urine Nitrate NEGATIVE (NEGATIVE) 01/10/17 02:45 Urine Bilirubin NEGATIVE (NEGATIVE) 01/10/17 02:45 Urine Urobilinogen 0.2 E.U./dL (0.2 - 1.0) 01/10/17 02:45 Ur Leukocyte Esterase NEGATIVE (NEGATIVE) 01/10/17 02:45 Urine RBC 0-2 /hpf (0-5) 01/10/17 02:45 Urine WBC 0-2 /hpf (0-5) 01/10/17 02:45 Ur Epithelial Cells OCCASIONAL /lpf (FEW) 01/10/17 02:45 Amorphous Sediment MODERATE PHOSPHATES (NONE SEEN) 01/10/17 02:45 Urine Bacteria FEW /hpf (NONE SEEN) 01/10/17 02:45 Salicylates < 25.0 mg/L (30.0-100.0) L 01/10/17 08:23 Acetaminophen < 10.0 ug/mL (10.0-30.0) L 01/10/17 08:23 Anti-Mitochondrial Ab 10.8 Units (0.0-20.0) 01/10/17 11:53 Smooth Muscle IgG Ab 16 Units (0-19) 01/10/17 11:53 Hepatitis A IgM Ab Negative (Negative) 01/10/17 11:53 Hep Bs Antigen Negative (Negative) 01/10/17 11:53 Hep B Core IgM Ab Negative (Negative) 01/10/17 11:53 Hepatitis C Antibody <0.1 s/co ratio (0.0-0.9) 01/10/17 11:53 - Physical Exam Vitals and I&O: Vital Signs Temp 98.9 F 01/13/17 04:00 Pulse 82 01/13/17 04:00 Resp 18 01/13/17 04:00 BP 121/63 01/13/17 04:00 Pulse Ox 97 01/13/17 04:00 Intake & Output 01/12/17 01/13/17 01/13/17 18:59 06:59 18:59 Intake Total 756.25 2048.75 Output Total 255 Balance 756.25 1793.75 Weight (lbs) 54.431 kg Intake: Intake, IV Amount 756.25 1518.75 D5-0.9%Ns 1,000 ml @ 75 756.25 mls/hr IV .[id number] [facility] Rx #:[id number] Dextrose 5% 1,000 ml @ 75 1518.75 mls/hr IV .[id number] [facility] Rx#:[id number] TPN/PPN 210 Other 320 Output: Stool 255 Other: # Voids 2 # Bowel Movements 1 Active Medications: Current Medications Acetaminophen (Tylenol) 650 mg GT Q4HR PRN PRN Reason: Pain or Fever >101 Stop: 03/11/17 08:32 Acetazolamide (Diamox) 250 mg GT MoFr [facility] Stop: 03/14/17 08:59 Alendronate Sodium (Fosamax) 70 mg PO QFRI@0630 [facility] Stop: 03/14/17 06:29 Ascorbic Acid (Vitamin C) 500 mg GT DAILY [facility] Stop: 03/11/17 11:59 Last Admin: 01/12/17 09:51 Dose: 500 mg Bisacodyl (Dulcolax 10 Mg Supp) 10 mg RC Q96HR PRN PRN Reason: Constipation Stop: 03/11/17 08:32 Calcium Carbonate (Tums) 500 mg GT Q6HR PRN PRN Reason: Indigestion Stop: 03/11/17 08:32 Calcium/Vitamin D (Oscal W/Vitamin D) 1 tab GT DAILY [facility] Stop: 03/11/17 11:59 Last Admin: 01/12/17 09:51 Dose: 1 tab Docusate Sodium (Colace) 100 mg GT TID [facility] Stop: 03/11/17 13:59 Last Admin: 01/12/17 21:53 Dose: 100 mg Ferrous Sulfate (Iron) 220 mg GT DAILY [facility] Stop: 03/11/17 11:59 Last Admin: 01/12/17 09:53 Dose: 220 mg Fludrocortisone Acetate (Florinef) 0.1 mg GT DAILY [facility] Stop: 03/11/17 11:59 Last Admin: 01/12/17 09:51 Dose: 0.1 mg Folic Acid (Folate) 1 mg GT DAILY [facility] Stop: 03/11/17 11:59 Last Admin: 01/12/17 09:51 Dose: 1 mg Potassium Chloride 40 meq/ (Dextrose) 1,020 mls @ 75 mls/hr IV .[id number] [facility] Stop: 03/14/17 08:24 Lacosamide (Vimpat) 200 mg GT BID [facility] Stop: 03/11/17 11:29 Last Admin: 01/12/17 17:45 Dose: 200 mg Levothyroxine Sodium (Synthroid) 0.05 mg GT QDAC [facility] Stop: 03/12/17 07:29 Last Admin: 01/13/17 06:56 Dose: 0.05 mg Magnesium Hydroxide (Milk Of Magnesia) 30 ml GT Q72HR PRN PRN Reason: Constipation Stop: 03/11/17 08:32 Metoclopramide HCl (Reglan) 10 mg IVP Q8HR [facility] Stop: 03/14/17 08:40 Midodrine (Proamatine) 5 mg GT TID [facility] Stop: 03/11/17 13:59 Last Admin: 01/12/17 21:53 Dose: 5 mg Sodium Phosphate (Fleet Enema) 135 ml RC Q96HR PRN PRN Reason: IF DULCOLAX NOT EFFECTIVE Stop: 03/11/17 08:32 Sucralfate (Carafate) 1 gm GT QID [facility] Stop: 03/11/17 12:59 Last Admin: 01/12/17 21:53 Dose: 1 gm Ursodiol (Actigall) 300 mg GT DAILY [facility] Stop: 03/11/17 11:59 Last Admin: 01/12/17 17:59 Dose: 300 mg General: Alert, Oriented x3, No acute distress HEENT: Atraumatic, PERRLA, EOMI Neck: Supple Cardiovascular: Regular rate, Normal S1, Normal S2 Lungs: Clear to auscultation Abdomen: Bowel sounds Extremities: no Clubbing, no Cyanosis, no Edema - Procedures Procedures: Procedures Procedure Code Date CHANGE FEEDING DEVICE IN LOW INTEST TRACT, WET SANDER APPROACH [id number] 01/10/17 REPLACE G-J TUBE PERC 02445 01/10/17 Assessment/Plan - Assessment Assessment: 41 YO FEMALE WITH MALFUNCTION GJ TUBE THEREFORE IT WAS CHANGED TWICE BECAUSE THE TIP KEPT SLIPPING BACK INTO THE STOMACH PT HAVING HIGH RESIDUALS 1.CHECK TO SEE IF THE TIP OF THE GJ IS IN THE SMALL BOWEL 2.CONT SUPP CARE
[2017-01-13] MEDS: Metoclopramide 5 mg/mL 2mL Vial IVP SCH ×2 (15:09→21:03)
[2017-01-13] MEDS: Calcium Carb/Vit D 500 mg/200 U Tab GT SCH (15:10)
[2017-01-13] MEDS: Docusate Sodium 100 mg/10 mL UD GT SCH ×2 (15:10→21:12)
[2017-01-13] MEDS: Ferrous Sulfate 300 MG/5 ML UDC GT SCH (15:11)
[2017-01-13] MEDS: Multivitamin w/ Minerals Tab GT SCH (15:12)
--- NOTE | 2017-01-13 15:33 | Diagnostic Imaging Report ---
Upper GI (Limited) HISTORY: Gastrostomy tube placement Water-soluble contrast was instilled through patient's gastrostomy tube. The exam demonstrates opacification of the gastric lumen. IMPRESSION: 1. Confirmation of gastrostomy tube within the gastric lumen.
[2017-01-13] MEDS ORDERED: Diatrizoate Meglumine/Diatri 30 mL Sol PO ONE (16:28)
[2017-01-14] MEDS: Metoclopramide 5 mg/mL 2mL Vial IVP SCH ×3 (06:04→20:30)
[2017-01-14 06:15] LABS: ALB/GLOB RATIO 0.9 (1.0-1.8); ALKALINE PHOSPHATASE 541 U/L (34-104); ANION GAP 7.7 (7.0-16.0); BILIRUBIN,TOTAL 0.3 mg/dL (0.3-1.0); BUN - UREA NITROGEN 6 mg/dL (7-25); CALCIUM SERUM 9.3 mg/dL (8.6-10.3); CARBON DIOXIDE 28.7 mEq/L (21.0-31.0); CHLORIDE 110 mEq/L (98-107); CREATININE - SERUM 0.4 mg/dL (0.6-1.2); GLUCOSE 102 mg/dL (70-105); POTASSIUM SERUM 4.4 mEq/L (3.5-5.1); SGOT 63 U/L (13-39); SGPT/ALT 157 U/L (7-52); SODIUM SERUM 142 mEq/L (136-145)
--- NOTE | 2017-01-14 06:53 | General Progress Note ---
Subjective - Review of Systems Service Date: 01/14/17 Subjective: Awake,alert,afebrile. no acute distress. s/p replacement of the GJ tube yesterday. for swallow evaluation. Objective - Results Result Diagrams: 01/13/17 07:15 01/14/17 05:44 Recent Labs: Laboratory Last Values WBC 6.8 Th/cmm (4.8-10.8) 01/13/17 07:15 RBC 3.03 Mil/cmm (3.80-5.10) L 01/13/17 07:15 Hgb 10.5 gm/dL (12-16) L 01/13/17 07:15 Hct 30.4 % (41.0-60) L 01/13/17 07:15 MCV 100.4 fl (81-100) H 01/13/17 07:15 MCH 34.7 pg (27.0-31.0) H 01/13/17 07:15 MCHC Differential 34.5 pg (28.0-36.0) 01/13/17 07:15 RDW 14.8 % (11.5-20.0) 01/13/17 07:15 Plt Count 133 Th/cmm (150-400) L 01/13/17 07:15 MPV 9.2 fl 01/13/17 07:15 Neutrophils % 44.0 % (40.0-80.0) 01/13/17 07:15 Lymphocytes % 37.3 % (20.0-50.0) 01/13/17 07:15 Monocytes % 13.5 % (2.0-10.0) H 01/13/17 07:15 Eosinophils % 4.7 % (0.0-5.0) 01/13/17 07:15 Basophils % 0.5 % (0.0-2.0) 01/13/17 07:15 PT 10.4 SECONDS (9.5-11.5) 01/11/17 04:45 INR 1.00 (0.5-1.4) 01/11/17 04:45 PTT (Actin FS) 31.5 SECONDS (26.0-38.0) 01/11/17 04:45 Sodium 142 mEq/L (136-145) 01/14/17 05:44 Potassium 4.4 mEq/L (3.5-5.1) 01/14/17 05:44 Chloride 110 mEq/L (98-107) H 01/14/17 05:44 Carbon Dioxide 28.7 mEq/L (21.0-31.0) 01/14/17 05:44 Anion Gap 7.7 (7.0-16.0) 01/14/17 05:44 BUN 6 mg/dL (7-25) L 01/14/17 05:44 Creatinine 0.4 mg/dL (0.6-1.2) L 01/14/17 05:44 Est GFR ( Amer) > 60.0 ml/min (>90) 01/14/17 05:44 Est GFR (Non-Af Amer) > 60.0 ml/min 01/14/17 05:44 BUN/Creatinine Ratio 15.0 01/14/17 05:44 Glucose 102 mg/dL (70-105) 01/14/17 05:44 POC Glucose 98 MG/DL (70 - 105) 01/11/17 10:26 Calcium 9.3 mg/dL (8.6-10.3) 01/14/17 05:44 Iron 214 ug/dL (27-159) H 01/10/17 11:53 TIBC 244 ug/dL (250-450) L 01/10/17 11:53 Iron Saturation 88 % (15-55) H 01/10/17 11:53 Unsaturated IBC 30 ug/dL (131-425) L 01/10/17 11:53 Ferritin 2237 ng/mL (15-150) H 01/10/17 11:53 Total Bilirubin 0.3 mg/dL (0.3-1.0) 01/14/17 05:44 Direct Bilirubin 0.02 mg/dL (0.0-0.2) 01/11/17 04:45 AST 63 U/L (13-39) H 01/14/17 05:44 ALT 157 U/L (7-52) H 01/14/17 05:44 Alkaline Phosphatase 541 U/L (34-104) H 01/14/17 05:44 Ammonia 78 umol/L (16-53) H 01/10/17 00:40 Total Protein 6.7 gm/dL (6.0-8.3) 01/14/17 05:44 Albumin 3.1 gm/dL (3.7-5.3) L 01/14/17 05:44 Globulin 3.6 gm/dL 01/14/17 05:44 Albumin/Globulin Ratio 0.9 (1.0-1.8) L 01/14/17 05:44 Klaku-6-Nukmunwbqfb 137 mg/dL (90-200) 01/10/17 11:53 Ceruloplasmin 32.1 mg/dL (19.0-39.0) 01/11/17 04:45 Amylase 115 U/L (29-103) H 01/10/17 00:40 Tumor Marker AFP 5.7 ng/mL (0.0-8.3) 01/10/17 11:53 TSH 2.12 uIU/ml (0.34-5.60) 01/10/17 00:40 Urine Source CLEAN C 01/10/17 02:45 Urine Color YELLOW 01/10/17 02:45 Urine Clarity HAZY (CLEAR) 01/10/17 02:45 Urine pH 8.0 (4.6 - 8.0) 01/10/17 02:45 Ur Specific [place] 1.010 (1.005-1.030) 01/10/17 02:45 Urine Protein TRACE mg/dL (NEGATIVE) 01/10/17 02:45 Urine Glucose (UA) NEGATIVE mg/dL (NEGATIVE) 01/10/17 02:45 Urine Ketones NEGATIVE mg/dL (NEGATIVE) 01/10/17 02:45 Urine Blood NEGATIVE (NEGATIVE) 01/10/17 02:45 Urine Nitrate NEGATIVE (NEGATIVE) 01/10/17 02:45 Urine Bilirubin NEGATIVE (NEGATIVE) 01/10/17 02:45 Urine Urobilinogen 0.2 E.U./dL (0.2 - 1.0) 01/10/17 02:45 Ur Leukocyte Esterase NEGATIVE (NEGATIVE) 01/10/17 02:45 Urine RBC 0-2 /hpf (0-5) 01/10/17 02:45 Urine WBC 0-2 /hpf (0-5) 01/10/17 02:45 Ur Epithelial Cells OCCASIONAL /lpf (FEW) 01/10/17 02:45 Amorphous Sediment MODERATE PHOSPHATES (NONE SEEN) 01/10/17 02:45 Urine Bacteria FEW /hpf (NONE SEEN) 01/10/17 02:45 Salicylates < 25.0 mg/L (30.0-100.0) L 01/10/17 08:23 Acetaminophen < 10.0 ug/mL (10.0-30.0) L 01/10/17 08:23 Anti-Mitochondrial Ab 10.8 Units (0.0-20.0) 01/10/17 11:53 Smooth Muscle IgG Ab 16 Units (0-19) 01/10/17 11:53 Hepatitis A IgM Ab Negative (Negative) 01/10/17 11:53 Hep Bs Antigen Negative (Negative) 01/10/17 11:53 Hep B Core IgM Ab Negative (Negative) 01/10/17 11:53 Hepatitis C Antibody <0.1 s/co ratio (0.0-0.9) 01/10/17 11:53 - Physical Exam Vitals and I&O: Vital Signs Temp 98.4 F 01/14/17 04:00 Pulse 83 01/14/17 04:00 Resp 18 01/14/17 04:00 BP 118/82 01/14/17 04:00 Pulse Ox 98 01/14/17 04:00 Intake & Output 01/13/17 01/13/17 01/14/17 06:59 18:59 06:59 Intake Total 2048.75 503.75 512.5 Output Total 255 Balance 1793.75 503.75 512.5 Weight (lbs) 54.431 kg 54.431 kg 55.202 kg Intake: Intake, IV Amount 1518.75 503.75 512.5 Dextrose 5% 1,000 ml @ 75 1518.75 mls/hr IV .[id number] [facility] Rx#:[id number] Potassium Chloride 40 meq 503.75 512.5 In Dextrose 5% 1,000 ml @ 75 mls/hr IV .[id number] [facility] Rx#:[id number] TPN/PPN 210 Other 320 Output: Stool 255 Other: # Voids 2 6 3 # Bowel Movements 1 1 Active Medications: Current Medications Acetaminophen (Tylenol) 650 mg GT Q4HR PRN PRN Reason: Pain or Fever >101 Stop: 03/11/17 08:32 Acetazolamide (Diamox) 250 mg GT MoFr [facility] Stop: 03/14/17 08:59 Last Admin: 01/13/17 15:10 Dose: Not Given Alendronate Sodium (Fosamax) 70 mg PO QFRI@0630 [facility] Stop: 03/14/17 06:29 Last Admin: 01/13/17 15:09 Dose: Not Given Ascorbic Acid (Vitamin C) 500 mg GT DAILY [facility] Stop: 03/11/17 11:59 Last Admin: 01/13/17 15:10 Dose: Not Given Bisacodyl (Dulcolax 10 Mg Supp) 10 mg RC Q96HR PRN PRN Reason: Constipation Stop: 03/11/17 08:32 Calcium Carbonate (Tums) 500 mg GT Q6HR PRN PRN Reason: Indigestion Stop: 03/11/17 08:32 Calcium/Vitamin D (Oscal W/Vitamin D) 1 tab GT DAILY [facility] Stop: 03/11/17 11:59 Last Admin: 01/13/17 15:10 Dose: Not Given Docusate Sodium (Colace) 100 mg GT TID [facility] Stop: 03/11/17 13:59 Last Admin: 01/13/17 21:12 Dose: Not Given Ferrous Sulfate (Iron) 220 mg GT DAILY [facility] Stop: 03/11/17 11:59 Last Admin: 01/13/17 15:11 Dose: Not Given Fludrocortisone Acetate (Florinef) 0.1 mg GT DAILY [facility] Stop: 03/11/17 11:59 Last Admin: 01/13/17 15:11 Dose: Not Given Folic Acid (Folate) 1 mg GT DAILY [facility] Stop: 03/11/17 11:59 Last Admin: 01/13/17 15:12 Dose: Not Given Potassium Chloride 40 meq/ (Dextrose) 1,020 mls @ 75 mls/hr IV .[id number] [facility] Stop: 03/14/17 08:24 Last Admin: 01/14/17 01:33 Dose: 75 mls/hr Lacosamide (Vimpat) 200 mg GT BID [facility] Stop: 03/11/17 11:29 Last Admin: 01/13/17 17:30 Dose: Not Given Levothyroxine Sodium (Synthroid) 0.05 mg GT QDAC [facility] Stop: 03/12/17 07:29 Last Admin: 01/13/17 06:56 Dose: 0.05 mg Magnesium Hydroxide (Milk Of Magnesia) 30 ml GT Q72HR PRN PRN Reason: Constipation Stop: 03/11/17 08:32 Metoclopramide HCl (Reglan) 10 mg IVP Q8HR [facility] Stop: 03/14/17 08:40 Last Admin: 01/14/17 06:04 Dose: 10 mg Midodrine (Proamatine) 5 mg GT TID [facility] Stop: 03/11/17 13:59 Last Admin: 01/13/17 21:12 Dose: Not Given Mupirocin (Bactroban Oint) 1 appl TP BID [facility] Stop: 01/18/17 09:01 Last Admin: 01/13/17 17:45 Dose: 1 appl Sodium Phosphate (Fleet Enema) 135 ml RC Q96HR PRN PRN Reason: IF DULCOLAX NOT EFFECTIVE Stop: 03/11/17 08:32 Sucralfate (Carafate) 1 gm GT QID [facility] Stop: 03/11/17 12:59 Last Admin: 01/13/17 21:12 Dose: Not Given Ursodiol (Actigall) 300 mg GT DAILY [facility] Stop: 03/11/17 11:59 Last Admin: 01/13/17 15:12 Dose: Not Given General: Alert, Oriented x3, No acute distress HEENT: Atraumatic, PERRLA, EOMI Neck: Supple Cardiovascular: Regular rate, Normal S1, Normal S2 Lungs: Clear to auscultation Abdomen: Bowel sounds Extremities: no Clubbing, no Cyanosis, no Edema - Procedures Procedures: Procedures Procedure Code Date CHANGE FEEDING DEVICE IN LOW INTEST TRACT, DIRECTOR HYDROGEN STORAGE ENGINEERING APPROACH [id number] 01/10/17 REPLACE G-J TUBE PERC 28340 01/10/17 Assessment/Plan - Assessment Assessment: malfunctioning gtube cirrhosis anemia seizures htn pacemaker - Plan Plan: malfunctioning gtube now replaced of GJ tube ... still having residuals. will add reglan. cirrhosis anemia seizures htn pacemaker Nutritional Asmnt/Malnutr-PDOC - Dietary Evaluation Malnutrition Findings (Please click <Entered> for more info): Nutritional Asmnt/Malnutrition Start: 01/11/17 12: 05 Text: Status: Complete Freq: Document 01/11/17 12:05 TIFFANI (Rec: 01/11/17 12:27 [email or web address] [email or web address]) Nutritional Asmnt/Malnutrition Patient General Information Nutritional Screening High Risk Screening Diagnosis Malfunctioning g-tube, cirrhosis, anemia, seizures, HTN, pacemaker Pertinent Medical Hx/Surgical Hx CAD, HTN, hyperlipidemia, seizure, cerebral palsy, dementia, gastritis, peptic ulcer, chronic liver disease, cholecystectomy Subjective Information 41 year old female. Pt was away for EGD during visit. Spoke to DONNA Nesbitt, j-tube replacement pending. Current Diet Order/ Nutrition Support NPO Pertinent Medications Vitamin C, dulcolax, Tums, Oscal W/Vitamin D, D5-0.9%ns, Colace, Iron, Folate, MOM, Reglan, Fleet Enema, Carafate Pertinent Labs AST 110H, ALT 249H, alkaline phosphatase 574H, ammonia 78H Nutritional Hx/Data Height 1.37 m Height (Calculated Centimeters) 137.2 Current Weight (lbs) 51.846 kg Weight (Calculated Kilograms) 51.8 Weight (Calculated Grams) 14713.6 Weight Status Overweight GI Symptoms Difficult in: Chewing Swallowing Skin Integrity/Comment: [place] 13. Left neck reddened, skin intact. Estimated Nutritional Goals BEE in Kcals: Using Current wt Calories/Kcals/Kg CBW 114.3lb/52kg Kcals Calculated 1144-1404kcal (22-27kcal/kg) Protein: Using Current wt Protein Calculated 31-42g (0.6-0.8g/kg) Fluid: ml 1144-1404ml (1ml/kcal) Nutritional Problem 2. Problem Problem Inadequate intake from enteral nutrition related to Etiology j-tube malfunction aeb Signs/Symptoms: pending replacement, currently NPO 1. Problem Problem Altered GI function related to Etiology chronic liver disease aeb Signs/Symptoms: AST 110H, ALT 249H, alkaline phosphatase 574H, ammonia 78H Intervention/Recommendation Comments 1. When medically feasible to resume feeding, recommend Fibersource at 40ml/hr x 24hrs , providing 960ml total volume , 1152kcal, 52g protein. Expected Outcomes/Goals Expected Outcomes/Goals 1. Pt to resume tube feeding and meet 100% of estimated nutritinoal needs with tolerance.
--- NOTE | 2017-01-14 08:39 | GI Progress Note ---
Subjective - Review of Systems Subjective: NO EVENTS Objective - Results Result Diagrams: 01/13/17 07:15 01/14/17 05:44 Recent Labs: Laboratory Last Values WBC 6.8 Th/cmm (4.8-10.8) 01/13/17 07:15 RBC 3.03 Mil/cmm (3.80-5.10) L 01/13/17 07:15 Hgb 10.5 gm/dL (12-16) L 01/13/17 07:15 Hct 30.4 % (41.0-60) L 01/13/17 07:15 MCV 100.4 fl (81-100) H 01/13/17 07:15 MCH 34.7 pg (27.0-31.0) H 01/13/17 07:15 MCHC Differential 34.5 pg (28.0-36.0) 01/13/17 07:15 RDW 14.8 % (11.5-20.0) 01/13/17 07:15 Plt Count 133 Th/cmm (150-400) L 01/13/17 07:15 MPV 9.2 fl 01/13/17 07:15 Neutrophils % 44.0 % (40.0-80.0) 01/13/17 07:15 Lymphocytes % 37.3 % (20.0-50.0) 01/13/17 07:15 Monocytes % 13.5 % (2.0-10.0) H 01/13/17 07:15 Eosinophils % 4.7 % (0.0-5.0) 01/13/17 07:15 Basophils % 0.5 % (0.0-2.0) 01/13/17 07:15 PT 10.4 SECONDS (9.5-11.5) 01/11/17 04:45 INR 1.00 (0.5-1.4) 01/11/17 04:45 PTT (Actin FS) 31.5 SECONDS (26.0-38.0) 01/11/17 04:45 Sodium 142 mEq/L (136-145) 01/14/17 05:44 Potassium 4.4 mEq/L (3.5-5.1) 01/14/17 05:44 Chloride 110 mEq/L (98-107) H 01/14/17 05:44 Carbon Dioxide 28.7 mEq/L (21.0-31.0) 01/14/17 05:44 Anion Gap 7.7 (7.0-16.0) 01/14/17 05:44 BUN 6 mg/dL (7-25) L 01/14/17 05:44 Creatinine 0.4 mg/dL (0.6-1.2) L 01/14/17 05:44 Est GFR ( Amer) > 60.0 ml/min (>90) 01/14/17 05:44 Est GFR (Non-Af Amer) > 60.0 ml/min 01/14/17 05:44 BUN/Creatinine Ratio 15.0 01/14/17 05:44 Glucose 102 mg/dL (70-105) 01/14/17 05:44 POC Glucose 98 MG/DL (70 - 105) 01/11/17 10:26 Calcium 9.3 mg/dL (8.6-10.3) 01/14/17 05:44 Iron 214 ug/dL (27-159) H 01/10/17 11:53 TIBC 244 ug/dL (250-450) L 01/10/17 11:53 Iron Saturation 88 % (15-55) H 01/10/17 11:53 Unsaturated IBC 30 ug/dL (131-425) L 01/10/17 11:53 Ferritin 2237 ng/mL (15-150) H 01/10/17 11:53 Total Bilirubin 0.3 mg/dL (0.3-1.0) 01/14/17 05:44 Direct Bilirubin 0.02 mg/dL (0.0-0.2) 01/11/17 04:45 AST 63 U/L (13-39) H 01/14/17 05:44 ALT 157 U/L (7-52) H 01/14/17 05:44 Alkaline Phosphatase 541 U/L (34-104) H 01/14/17 05:44 Ammonia 78 umol/L (16-53) H 01/10/17 00:40 Total Protein 6.7 gm/dL (6.0-8.3) 01/14/17 05:44 Albumin 3.1 gm/dL (3.7-5.3) L 01/14/17 05:44 Globulin 3.6 gm/dL 01/14/17 05:44 Albumin/Globulin Ratio 0.9 (1.0-1.8) L 01/14/17 05:44 [id number]-[id number]-Ynehultdhvn 137 mg/dL (90-200) 01/10/17 11:53 Ceruloplasmin 32.1 mg/dL (19.0-39.0) 01/11/17 04:45 Amylase 115 U/L (29-103) H 01/10/17 00:40 Tumor Marker AFP 5.7 ng/mL (0.0-8.3) 01/10/17 11:53 TSH 2.12 uIU/ml (0.34-5.60) 01/10/17 00:40 Urine Source CLEAN C 01/10/17 02:45 Urine Color YELLOW 01/10/17 02:45 Urine Clarity HAZY (CLEAR) 01/10/17 02:45 Urine pH 8.0 (4.6 - 8.0) 01/10/17 02:45 Ur Specific [place] 1.010 (1.005-1.030) 01/10/17 02:45 Urine Protein TRACE mg/dL (NEGATIVE) 01/10/17 02:45 Urine Glucose (UA) NEGATIVE mg/dL (NEGATIVE) 01/10/17 02:45 Urine Ketones NEGATIVE mg/dL (NEGATIVE) 01/10/17 02:45 Urine Blood NEGATIVE (NEGATIVE) 01/10/17 02:45 Urine Nitrate NEGATIVE (NEGATIVE) 01/10/17 02:45 Urine Bilirubin NEGATIVE (NEGATIVE) 01/10/17 02:45 Urine Urobilinogen 0.2 E.U./dL (0.2 - 1.0) 01/10/17 02:45 Ur Leukocyte Esterase NEGATIVE (NEGATIVE) 01/10/17 02:45 Urine RBC 0-2 /hpf (0-5) 01/10/17 02:45 Urine WBC 0-2 /hpf (0-5) 01/10/17 02:45 Ur Epithelial Cells OCCASIONAL /lpf (FEW) 01/10/17 02:45 Amorphous Sediment MODERATE PHOSPHATES (NONE SEEN) 01/10/17 02:45 Urine Bacteria FEW /hpf (NONE SEEN) 01/10/17 02:45 Salicylates < 25.0 mg/L (30.0-100.0) L 01/10/17 08:23 Acetaminophen < 10.0 ug/mL (10.0-30.0) L 01/10/17 08:23 Anti-Mitochondrial Ab 10.8 Units (0.0-20.0) 01/10/17 11:53 Smooth Muscle IgG Ab 16 Units (0-19) 01/10/17 11:53 Hepatitis A IgM Ab Negative (Negative) 01/10/17 11:53 Hep Bs Antigen Negative (Negative) 01/10/17 11:53 Hep B Core IgM Ab Negative (Negative) 01/10/17 11:53 Hepatitis C Antibody <0.1 s/co ratio (0.0-0.9) 01/10/17 11:53 - Physical Exam Vitals and I&O: Vital Signs Temp 97.3 F 01/14/17 08:00 Pulse 80 01/14/17 08:00 Resp 18 01/14/17 08:00 BP 136/82 01/14/17 08:00 Pulse Ox 97 01/14/17 08:00 Intake & Output 01/13/17 01/14/17 01/14/17 18:59 06:59 18:59 Intake Total 503.75 512.5 Balance 503.75 512.5 Weight (lbs) 54.431 kg 55.202 kg Intake: Intake, IV Amount 503.75 512.5 Potassium Chloride 40 meq 503.75 512.5 In Dextrose 5% 1,000 ml @ 75 mls/hr IV .[id number] [facility] Rx#:[id number] Other: # Voids 6 3 # Bowel Movements 1 Active Medications: Current Medications Acetaminophen (Tylenol) 650 mg GT Q4HR PRN PRN Reason: Pain or Fever >101 Stop: 03/11/17 08:32 Acetazolamide (Diamox) 250 mg GT MoFr [facility] Stop: 03/14/17 08:59 Last Admin: 01/13/17 15:10 Dose: Not Given Alendronate Sodium (Fosamax) 70 mg PO QFRI@0630 [facility] Stop: 03/14/17 06:29 Last Admin: 01/13/17 15:09 Dose: Not Given Ascorbic Acid (Vitamin C) 500 mg GT DAILY [facility] Stop: 03/11/17 11:59 Last Admin: 01/13/17 15:10 Dose: Not Given Bisacodyl (Dulcolax 10 Mg Supp) 10 mg RC Q96HR PRN PRN Reason: Constipation Stop: 03/11/17 08:32 Calcium Carbonate (Tums) 500 mg GT Q6HR PRN PRN Reason: Indigestion Stop: 03/11/17 08:32 Calcium/Vitamin D (Oscal W/Vitamin D) 1 tab GT DAILY [facility] Stop: 03/11/17 11:59 Last Admin: 01/13/17 15:10 Dose: Not Given Docusate Sodium (Colace) 100 mg GT TID [facility] Stop: 03/11/17 13:59 Last Admin: 01/13/17 21:12 Dose: Not Given Ferrous Sulfate (Iron) 220 mg GT DAILY [facility] Stop: 03/11/17 11:59 Last Admin: 01/13/17 15:11 Dose: Not Given Fludrocortisone Acetate (Florinef) 0.1 mg GT DAILY [facility] Stop: 03/11/17 11:59 Last Admin: 01/13/17 15:11 Dose: Not Given Folic Acid (Folate) 1 mg GT DAILY [facility] Stop: 03/11/17 11:59 Last Admin: 01/13/17 15:12 Dose: Not Given Dextrose (D5w) 1,000 mls @ 75 mls/hr IV .[id number] [facility] Stop: 03/15/17 06:54 Lacosamide (Vimpat) 200 mg GT BID [facility] Stop: 03/11/17 11:29 Last Admin: 01/13/17 17:30 Dose: Not Given Levothyroxine Sodium (Synthroid) 0.05 mg GT QDAC [facility] Stop: 03/12/17 07:29 Last Admin: 01/13/17 06:56 Dose: 0.05 mg Magnesium Hydroxide (Milk Of Magnesia) 30 ml GT Q72HR PRN PRN Reason: Constipation Stop: 03/11/17 08:32 Metoclopramide HCl (Reglan) 10 mg IVP Q8HR [facility] Stop: 03/14/17 08:40 Last Admin: 01/14/17 06:04 Dose: 10 mg Midodrine (Proamatine) 5 mg GT TID [facility] Stop: 03/11/17 13:59 Last Admin: 01/13/17 21:12 Dose: Not Given Mupirocin (Bactroban Oint) 1 appl TP BID [facility] Stop: 01/18/17 09:01 Last Admin: 01/13/17 17:45 Dose: 1 appl Sodium Phosphate (Fleet Enema) 135 ml RC Q96HR PRN PRN Reason: IF DULCOLAX NOT EFFECTIVE Stop: 03/11/17 08:32 Sucralfate (Carafate) 1 gm GT QID [facility] Stop: 03/11/17 12:59 Last Admin: 01/13/17 21:12 Dose: Not Given Ursodiol (Actigall) 300 mg GT DAILY [facility] Stop: 03/11/17 11:59 Last Admin: 01/13/17 15:12 Dose: Not Given General: Alert, Oriented x3, No acute distress HEENT: Atraumatic, PERRLA, EOMI Neck: Supple Cardiovascular: Regular rate, Normal S1, Normal S2 Lungs: Clear to auscultation Abdomen: Bowel sounds Extremities: no Clubbing, no Cyanosis, no Edema - Procedures Procedures: Procedures Procedure Code Date CHANGE FEEDING DEVICE IN LOW INTEST TRACT, SENIOR MEDICAL DIRECTOR APPROACH [id number] 01/10/17 REPLACE G-J TUBE PERC 96083 01/10/17 Assessment/Plan - Assessment Assessment: 41 YO FEMALE WITH MALFUNCTION GJ TUBE THEREFORE IT WAS CHANGED TWICE BECAUSE THE TIP KEPT SLIPPING BACK INTO THE STOMACH UGI SERIES SHOW THE TIP TO BE IN THE STOMACH IF PT CAN'T LIZ TUBE FEEDS MAY LIKELY NEED ANOTHER PROCEDURE TO REPOSITION THE GJ TUBE 1.TRIAL OF TUBE FEEDS 2.CONT SUPP CARE
[2017-01-14] MEDS: Docusate Sodium 100 mg/10 mL UD GT SCH ×3 (09:28→20:30)
[2017-01-14] MEDS: Ferrous Sulfate 300 MG/5 ML UDC GT SCH (09:28)
[2017-01-14] MEDS: Calcium Carb/Vit D 500 mg/200 U Tab GT SCH (09:29)
[2017-01-14] MEDS: Multivitamin w/ Minerals Tab GT SCH (09:29)
[2017-01-14] MEDS: Levothyroxine 0.05 Mg Tab GT SCH (11:32)
[2017-01-14] MEDS: Dextrose 5% 1,000 ML IV SCH ×2 (11:39→20:28)
[2017-01-15] MEDS: Metoclopramide 5 mg/mL 2mL Vial IVP SCH ×3 (04:32→20:28)
--- NOTE | 2017-01-15 06:44 | General Progress Note ---
Subjective - Review of Systems Service Date: 01/15/17 Subjective: Awake,alert,afebrile. no acute distress. s/p replacement of the GJ tube yesterday. for swallow evaluation. Patient doing fine. Objective - Results Result Diagrams: 01/13/17 07:15 01/14/17 05:44 Recent Labs: Laboratory Last Values WBC 6.8 Th/cmm (4.8-10.8) 01/13/17 07:15 RBC 3.03 Mil/cmm (3.80-5.10) L 01/13/17 07:15 Hgb 10.5 gm/dL (12-16) L 01/13/17 07:15 Hct 30.4 % (41.0-60) L 01/13/17 07:15 MCV 100.4 fl (81-100) H 01/13/17 07:15 MCH 34.7 pg (27.0-31.0) H 01/13/17 07:15 MCHC Differential 34.5 pg (28.0-36.0) 01/13/17 07:15 RDW 14.8 % (11.5-20.0) 01/13/17 07:15 Plt Count 133 Th/cmm (150-400) L 01/13/17 07:15 MPV 9.2 fl 01/13/17 07:15 Neutrophils % 44.0 % (40.0-80.0) 01/13/17 07:15 Lymphocytes % 37.3 % (20.0-50.0) 01/13/17 07:15 Monocytes % 13.5 % (2.0-10.0) H 01/13/17 07:15 Eosinophils % 4.7 % (0.0-5.0) 01/13/17 07:15 Basophils % 0.5 % (0.0-2.0) 01/13/17 07:15 PT 10.4 SECONDS (9.5-11.5) 01/11/17 04:45 INR 1.00 (0.5-1.4) 01/11/17 04:45 PTT (Actin FS) 31.5 SECONDS (26.0-38.0) 01/11/17 04:45 Sodium 142 mEq/L (136-145) 01/14/17 05:44 Potassium 4.4 mEq/L (3.5-5.1) 01/14/17 05:44 Chloride 110 mEq/L (98-107) H 01/14/17 05:44 Carbon Dioxide 28.7 mEq/L (21.0-31.0) 01/14/17 05:44 Anion Gap 7.7 (7.0-16.0) 01/14/17 05:44 BUN 6 mg/dL (7-25) L 01/14/17 05:44 Creatinine 0.4 mg/dL (0.6-1.2) L 01/14/17 05:44 Est GFR ( Amer) > 60.0 ml/min (>90) 01/14/17 05:44 Est GFR (Non-Af Amer) > 60.0 ml/min 01/14/17 05:44 BUN/Creatinine Ratio 15.0 01/14/17 05:44 Glucose 102 mg/dL (70-105) 01/14/17 05:44 POC Glucose 98 MG/DL (70 - 105) 01/11/17 10:26 Calcium 9.3 mg/dL (8.6-10.3) 01/14/17 05:44 Iron 214 ug/dL (27-159) H 01/10/17 11:53 TIBC 244 ug/dL (250-450) L 01/10/17 11:53 Iron Saturation 88 % (15-55) H 01/10/17 11:53 Unsaturated IBC 30 ug/dL (131-425) L 01/10/17 11:53 Ferritin 2237 ng/mL (15-150) H 01/10/17 11:53 Total Bilirubin 0.3 mg/dL (0.3-1.0) 01/14/17 05:44 Direct Bilirubin 0.02 mg/dL (0.0-0.2) 01/11/17 04:45 AST 63 U/L (13-39) H 01/14/17 05:44 ALT 157 U/L (7-52) H 01/14/17 05:44 Alkaline Phosphatase 541 U/L (34-104) H 01/14/17 05:44 Ammonia 78 umol/L (16-53) H 01/10/17 00:40 Total Protein 6.7 gm/dL (6.0-8.3) 01/14/17 05:44 Albumin 3.1 gm/dL (3.7-5.3) L 01/14/17 05:44 Globulin 3.6 gm/dL 01/14/17 05:44 Albumin/Globulin Ratio 0.9 (1.0-1.8) L 01/14/17 05:44 Wgnni-8-Dxgwinxdjox 137 mg/dL (90-200) 01/10/17 11:53 Ceruloplasmin 32.1 mg/dL (19.0-39.0) 01/11/17 04:45 Amylase 115 U/L (29-103) H 01/10/17 00:40 Tumor Marker AFP 5.7 ng/mL (0.0-8.3) 01/10/17 11:53 TSH 2.12 uIU/ml (0.34-5.60) 01/10/17 00:40 Urine Source CLEAN C 01/10/17 02:45 Urine Color YELLOW 01/10/17 02:45 Urine Clarity HAZY (CLEAR) 01/10/17 02:45 Urine pH 8.0 (4.6 - 8.0) 01/10/17 02:45 Ur Specific [place] 1.010 (1.005-1.030) 01/10/17 02:45 Urine Protein TRACE mg/dL (NEGATIVE) 01/10/17 02:45 Urine Glucose (UA) NEGATIVE mg/dL (NEGATIVE) 01/10/17 02:45 Urine Ketones NEGATIVE mg/dL (NEGATIVE) 01/10/17 02:45 Urine Blood NEGATIVE (NEGATIVE) 01/10/17 02:45 Urine Nitrate NEGATIVE (NEGATIVE) 01/10/17 02:45 Urine Bilirubin NEGATIVE (NEGATIVE) 01/10/17 02:45 Urine Urobilinogen 0.2 E.U./dL (0.2 - 1.0) 01/10/17 02:45 Ur Leukocyte Esterase NEGATIVE (NEGATIVE) 01/10/17 02:45 Urine RBC 0-2 /hpf (0-5) 01/10/17 02:45 Urine WBC 0-2 /hpf (0-5) 01/10/17 02:45 Ur Epithelial Cells OCCASIONAL /lpf (FEW) 01/10/17 02:45 Amorphous Sediment MODERATE PHOSPHATES (NONE SEEN) 01/10/17 02:45 Urine Bacteria FEW /hpf (NONE SEEN) 01/10/17 02:45 Salicylates < 25.0 mg/L (30.0-100.0) L 01/10/17 08:23 Acetaminophen < 10.0 ug/mL (10.0-30.0) L 01/10/17 08:23 Anti-Mitochondrial Ab 10.8 Units (0.0-20.0) 01/10/17 11:53 Smooth Muscle IgG Ab 16 Units (0-19) 01/10/17 11:53 Hepatitis A IgM Ab Negative (Negative) 01/10/17 11:53 Hep Bs Antigen Negative (Negative) 01/10/17 11:53 Hep B Core IgM Ab Negative (Negative) 01/10/17 11:53 Hepatitis C Antibody <0.1 s/co ratio (0.0-0.9) 01/10/17 11:53 - Physical Exam Vitals and I&O: Vital Signs Temp 97 F 01/15/17 04:00 Pulse 70 01/15/17 04:00 Resp 18 01/15/17 04:00 BP 110/72 01/15/17 04:00 Pulse Ox 93 01/15/17 04:00 Intake & Output 01/14/17 01/14/17 01/15/17 06:59 18:59 06:59 Intake Total 512.5 800 661.25 Balance 512.5 800 661.25 Weight (lbs) 55.202 kg 54.885 kg 58.967 kg Intake: Intake, IV Amount 512.5 661.25 Dextrose 5% 1,000 ml @ 75 661.25 mls/hr IV .[id number] [facility] Rx#:[id number] Potassium Chloride 40 meq 512.5 In Dextrose 5% 1,000 ml @ 75 mls/hr IV .[id number] [facility] Rx#:[id number] Oral 800 Other: # Voids 3 2 3 # Bowel Movements 1 1 Active Medications: Current Medications Acetaminophen (Tylenol) 650 mg GT Q4HR PRN PRN Reason: Pain or Fever >101 Stop: 03/11/17 08:32 Acetazolamide (Diamox) 250 mg GT MoFr [facility] Stop: 03/14/17 08:59 Last Admin: 01/13/17 15:10 Dose: Not Given Alendronate Sodium (Fosamax) 70 mg PO QFRI@0630 [facility] Stop: 03/14/17 06:29 Last Admin: 01/13/17 15:09 Dose: Not Given Ascorbic Acid (Vitamin C) 500 mg GT DAILY [facility] Stop: 03/11/17 11:59 Last Admin: 01/14/17 09:29 Dose: 500 mg Bisacodyl (Dulcolax 10 Mg Supp) 10 mg RC Q96HR PRN PRN Reason: Constipation Stop: 03/11/17 08:32 Calcium Carbonate (Tums) 500 mg GT Q6HR PRN PRN Reason: Indigestion Stop: 03/11/17 08:32 Calcium/Vitamin D (Oscal W/Vitamin D) 1 tab GT DAILY [facility] Stop: 03/11/17 11:59 Last Admin: 01/14/17 09:29 Dose: 1 tab Docusate Sodium (Colace) 100 mg GT TID [facility] Stop: 03/11/17 13:59 Last Admin: 01/14/17 20:30 Dose: 100 mg Ferrous Sulfate (Iron) 220 mg GT DAILY [facility] Stop: 03/11/17 11:59 Last Admin: 01/14/17 09:28 Dose: 220 mg Fludrocortisone Acetate (Florinef) 0.1 mg GT DAILY [facility] Stop: 03/11/17 11:59 Last Admin: 01/14/17 09:29 Dose: 0.1 mg Folic Acid (Folate) 1 mg GT DAILY [facility] Stop: 03/11/17 11:59 Last Admin: 01/14/17 09:29 Dose: 1 mg Dextrose (D5w) 1,000 mls @ 75 mls/hr IV .[id number] [facility] Stop: 03/15/17 06:54 Last Admin: 01/14/17 20:28 Dose: 75 mls/hr Lacosamide (Vimpat) 200 mg GT BID [facility] Stop: 03/11/17 11:29 Last Admin: 01/14/17 16:40 Dose: 200 mg Levothyroxine Sodium (Synthroid) 0.05 mg GT QDAC [facility] Stop: 03/12/17 07:29 Last Admin: 01/14/17 11:32 Dose: 0.05 mg Magnesium Hydroxide (Milk Of Magnesia) 30 ml GT Q72HR PRN PRN Reason: Constipation Stop: 03/11/17 08:32 Metoclopramide HCl (Reglan) 10 mg IVP Q8HR [facility] Stop: 03/14/17 08:40 Last Admin: 01/15/17 04:32 Dose: 10 mg Midodrine (Proamatine) 5 mg GT TID [facility] Stop: 03/11/17 13:59 Last Admin: 01/14/17 20:30 Dose: 5 mg Mupirocin (Bactroban Oint) 1 appl TP BID [facility] Stop: 01/18/17 09:01 Last Admin: 01/14/17 16:55 Dose: 1 appl Sodium Phosphate (Fleet Enema) 135 ml RC Q96HR PRN PRN Reason: IF DULCOLAX NOT EFFECTIVE Stop: 03/11/17 08:32 Sucralfate (Carafate) 1 gm GT QID [facility] Stop: 03/11/17 12:59 Last Admin: 01/14/17 20:29 Dose: 1 gm Ursodiol (Actigall) 300 mg GT DAILY [facility] Stop: 03/11/17 11:59 Last Admin: 01/14/17 09:30 Dose: 300 mg General: Alert, Oriented x3, No acute distress HEENT: Atraumatic, PERRLA, EOMI Neck: Supple Cardiovascular: Regular rate, Normal S1, Normal S2 Lungs: Clear to auscultation Abdomen: Bowel sounds Extremities: no Clubbing, no Cyanosis, no Edema - Procedures Procedures: Procedures Procedure Code Date CHANGE FEEDING DEVICE IN LOW INTEST TRACT, EDI DEVELOPER APPROACH [id number] 01/10/17 REPLACE G-J TUBE PERC 34130 01/10/17 Assessment/Plan - Assessment Assessment: malfunctioning gtube cirrhosis anemia seizures htn pacemaker - Plan Plan: malfunctioning gtube now replaced of GJ tube ... still having residuals. will add reglan. cirrhosis anemia seizures htn pacemaker Nutritional Asmnt/Malnutr-PDOC - Dietary Evaluation Malnutrition Findings (Please click <Entered> for more info): Nutritional Asmnt/Malnutrition Start: 01/11/17 12: 05 Text: Status: Complete Freq: Document 01/11/17 12:05 GSUN (Rec: 01/11/17 12:27 [email or web address] [email or web address]) Nutritional Asmnt/Malnutrition Patient General Information Nutritional Screening High Risk Screening Diagnosis Malfunctioning g-tube, cirrhosis, anemia, seizures, HTN, pacemaker Pertinent Medical Hx/Surgical Hx CAD, HTN, hyperlipidemia, seizure, cerebral palsy, dementia, gastritis, peptic ulcer, chronic liver disease, cholecystectomy Subjective Information 41 year old female. Pt was away for EGD during visit. Spoke to DONNA Nesbitt, j-tube replacement pending. Current Diet Order/ Nutrition Support NPO Pertinent Medications Vitamin C, dulcolax, Tums, Oscal W/Vitamin D, D5-0.9%ns, Colace, Iron, Folate, MOM, Reglan, Fleet Enema, Carafate Pertinent Labs AST 110H, ALT 249H, alkaline phosphatase 574H, ammonia 78H Nutritional Hx/Data Height 1.37 m Height (Calculated Centimeters) 137.2 Current Weight (lbs) 51.846 kg Weight (Calculated Kilograms) 51.8 Weight (Calculated Grams) 89847.6 Weight Status Overweight GI Symptoms Difficult in: Chewing Swallowing Skin Integrity/Comment: [place] 13. Left neck reddened, skin intact. Estimated Nutritional Goals BEE in Kcals: Using Current wt Calories/Kcals/Kg CBW 114.3lb/52kg Kcals Calculated 1144-1404kcal (22-27kcal/kg) Protein: Using Current wt Protein Calculated 31-42g (0.6-0.8g/kg) Fluid: ml 1144-1404ml (1ml/kcal) Nutritional Problem 2. Problem Problem Inadequate intake from enteral nutrition related to Etiology j-tube malfunction aeb Signs/Symptoms: pending replacement, currently NPO 1. Problem Problem Altered GI function related to Etiology chronic liver disease aeb Signs/Symptoms: AST 110H, ALT 249H, alkaline phosphatase 574H, ammonia 78H Intervention/Recommendation Comments 1. When medically feasible to resume feeding, recommend Fibersource at 40ml/hr x 24hrs , providing 960ml total volume , 1152kcal, 52g protein. Expected Outcomes/Goals Expected Outcomes/Goals 1. Pt to resume tube feeding and meet 100% of estimated nutritinoal needs with tolerance.
[2017-01-15] MEDS: Levothyroxine 0.05 Mg Tab GT SCH (06:56)
[2017-01-15 07:03] LABS: ALB/GLOB RATIO 0.9 (1.0-1.8); ALKALINE PHOSPHATASE 472 U/L (34-104); ANION GAP 9.7 (7.0-16.0); BILIRUBIN,TOTAL 0.3 mg/dL (0.3-1.0); BUN - UREA NITROGEN 9 mg/dL (7-25); BUN/CREATININE RATIO 22.5; CALCIUM SERUM 8.9 mg/dL (8.6-10.3); CARBON DIOXIDE 26.6 mEq/L (21.0-31.0); CHLORIDE 109 mEq/L (98-107); CREATININE - SERUM 0.4 mg/dL (0.6-1.2); GLUCOSE 85 mg/dL (70-105); POTASSIUM SERUM 4.3 mEq/L (3.5-5.1); SGOT 46 U/L (13-39); SGPT/ALT 113 U/L (7-52); SODIUM SERUM 141 mEq/L (136-145)
[2017-01-15] MEDS: Ferrous Sulfate 300 MG/5 ML UDC GT SCH (08:50)
[2017-01-15] MEDS: Calcium Carb/Vit D 500 mg/200 U Tab GT SCH (08:51)
[2017-01-15] MEDS: Multivitamin w/ Minerals Tab GT SCH (08:51)
[2017-01-15] MEDS: Docusate Sodium 100 mg/10 mL UD GT SCH ×3 (08:51→20:28)
--- NOTE | 2017-01-15 09:13 | GI Progress Note ---
Subjective - Review of Systems Subjective: NO EVENTS HIGH RESIDUALS Objective - Results Result Diagrams: 01/13/17 07:15 01/15/17 05:30 Recent Labs: Laboratory Last Values WBC 6.8 Th/cmm (4.8-10.8) 01/13/17 07:15 RBC 3.03 Mil/cmm (3.80-5.10) L 01/13/17 07:15 Hgb 10.5 gm/dL (12-16) L 01/13/17 07:15 Hct 30.4 % (41.0-60) L 01/13/17 07:15 MCV 100.4 fl (81-100) H 01/13/17 07:15 MCH 34.7 pg (27.0-31.0) H 01/13/17 07:15 MCHC Differential 34.5 pg (28.0-36.0) 01/13/17 07:15 RDW 14.8 % (11.5-20.0) 01/13/17 07:15 Plt Count 133 Th/cmm (150-400) L 01/13/17 07:15 MPV 9.2 fl 01/13/17 07:15 Neutrophils % 44.0 % (40.0-80.0) 01/13/17 07:15 Lymphocytes % 37.3 % (20.0-50.0) 01/13/17 07:15 Monocytes % 13.5 % (2.0-10.0) H 01/13/17 07:15 Eosinophils % 4.7 % (0.0-5.0) 01/13/17 07:15 Basophils % 0.5 % (0.0-2.0) 01/13/17 07:15 PT 10.4 SECONDS (9.5-11.5) 01/11/17 04:45 INR 1.00 (0.5-1.4) 01/11/17 04:45 PTT (Actin FS) 31.5 SECONDS (26.0-38.0) 01/11/17 04:45 Sodium 141 mEq/L (136-145) 01/15/17 05:30 Potassium 4.3 mEq/L (3.5-5.1) 01/15/17 05:30 Chloride 109 mEq/L (98-107) H 01/15/17 05:30 Carbon Dioxide 26.6 mEq/L (21.0-31.0) 01/15/17 05:30 Anion Gap 9.7 (7.0-16.0) 01/15/17 05:30 BUN 9 mg/dL (7-25) 01/15/17 05:30 Creatinine 0.4 mg/dL (0.6-1.2) L 01/15/17 05:30 Est GFR ( Amer) > 60.0 ml/min (>90) 01/15/17 05:30 Est GFR (Non-Af Amer) > 60.0 ml/min 01/15/17 05:30 BUN/Creatinine Ratio 22.5 01/15/17 05:30 Glucose 85 mg/dL (70-105) 01/15/17 05:30 POC Glucose 98 MG/DL (70 - 105) 01/11/17 10:26 Calcium 8.9 mg/dL (8.6-10.3) 01/15/17 05:30 Iron 214 ug/dL (27-159) H 01/10/17 11:53 TIBC 244 ug/dL (250-450) L 01/10/17 11:53 Iron Saturation 88 % (15-55) H 01/10/17 11:53 Unsaturated IBC 30 ug/dL (131-425) L 01/10/17 11:53 Ferritin 2237 ng/mL (15-150) H 01/10/17 11:53 Total Bilirubin 0.3 mg/dL (0.3-1.0) 01/15/17 05:30 Direct Bilirubin 0.02 mg/dL (0.0-0.2) 01/11/17 04:45 AST 46 U/L (13-39) H 01/15/17 05:30 ALT 113 U/L (7-52) H 01/15/17 05:30 Alkaline Phosphatase 472 U/L (34-104) H 01/15/17 05:30 Ammonia 78 umol/L (16-53) H 01/10/17 00:40 Total Protein 6.2 gm/dL (6.0-8.3) 01/15/17 05:30 Albumin 2.9 gm/dL (3.7-5.3) L 01/15/17 05:30 Globulin 3.3 gm/dL 01/15/17 05:30 Albumin/Globulin Ratio 0.9 (1.0-1.8) L 01/15/17 05:30 Qcuin-8-Eeqlkfkuacj 137 mg/dL (90-200) 01/10/17 11:53 Ceruloplasmin 32.1 mg/dL (19.0-39.0) 01/11/17 04:45 Amylase 115 U/L (29-103) H 01/10/17 00:40 Tumor Marker AFP 5.7 ng/mL (0.0-8.3) 01/10/17 11:53 TSH 2.12 uIU/ml (0.34-5.60) 01/10/17 00:40 Urine Source CLEAN C 01/10/17 02:45 Urine Color YELLOW 01/10/17 02:45 Urine Clarity HAZY (CLEAR) 01/10/17 02:45 Urine pH 8.0 (4.6 - 8.0) 01/10/17 02:45 Ur Specific [place] 1.010 (1.005-1.030) 01/10/17 02:45 Urine Protein TRACE mg/dL (NEGATIVE) 01/10/17 02:45 Urine Glucose (UA) NEGATIVE mg/dL (NEGATIVE) 01/10/17 02:45 Urine Ketones NEGATIVE mg/dL (NEGATIVE) 01/10/17 02:45 Urine Blood NEGATIVE (NEGATIVE) 01/10/17 02:45 Urine Nitrate NEGATIVE (NEGATIVE) 01/10/17 02:45 Urine Bilirubin NEGATIVE (NEGATIVE) 01/10/17 02:45 Urine Urobilinogen 0.2 E.U./dL (0.2 - 1.0) 01/10/17 02:45 Ur Leukocyte Esterase NEGATIVE (NEGATIVE) 01/10/17 02:45 Urine RBC 0-2 /hpf (0-5) 01/10/17 02:45 Urine WBC 0-2 /hpf (0-5) 01/10/17 02:45 Ur Epithelial Cells OCCASIONAL /lpf (FEW) 01/10/17 02:45 Amorphous Sediment MODERATE PHOSPHATES (NONE SEEN) 01/10/17 02:45 Urine Bacteria FEW /hpf (NONE SEEN) 01/10/17 02:45 Salicylates < 25.0 mg/L (30.0-100.0) L 01/10/17 08:23 Acetaminophen < 10.0 ug/mL (10.0-30.0) L 01/10/17 08:23 Anti-Mitochondrial Ab 10.8 Units (0.0-20.0) 01/10/17 11:53 Smooth Muscle IgG Ab 16 Units (0-19) 01/10/17 11:53 Hepatitis A IgM Ab Negative (Negative) 01/10/17 11:53 Hep Bs Antigen Negative (Negative) 01/10/17 11:53 Hep B Core IgM Ab Negative (Negative) 01/10/17 11:53 Hepatitis C Antibody <0.1 s/co ratio (0.0-0.9) 01/10/17 11:53 - Physical Exam Vitals and I&O: Vital Signs Temp 97.4 F 01/15/17 07:38 Pulse 80 01/15/17 07:38 Resp 18 01/15/17 07:38 BP 113/77 01/15/17 07:38 Pulse Ox 98 01/15/17 07:38 Intake & Output 01/14/17 01/15/17 01/15/17 18:59 06:59 18:59 Intake Total 800 661.25 Balance 800 661.25 Weight (lbs) 54.885 kg 58.967 kg Intake: Intake, IV Amount 661.25 Dextrose 5% 1,000 ml @ 75 661.25 mls/hr IV .[id number] [facility] Rx#:[id number] Oral 800 Other: # Voids 2 3 # Bowel Movements 1 1 Active Medications: Current Medications Acetaminophen (Tylenol) 650 mg GT Q4HR PRN PRN Reason: Pain or Fever >101 Stop: 03/11/17 08:32 Acetazolamide (Diamox) 250 mg GT MoFr [facility] Stop: 03/14/17 08:59 Last Admin: 01/13/17 15:10 Dose: Not Given Alendronate Sodium (Fosamax) 70 mg PO QFRI@0630 [facility] Stop: 03/14/17 06:29 Last Admin: 01/13/17 15:09 Dose: Not Given Ascorbic Acid (Vitamin C) 500 mg GT DAILY [facility] Stop: 03/11/17 11:59 Last Admin: 01/15/17 08:51 Dose: 500 mg Bisacodyl (Dulcolax 10 Mg Supp) 10 mg RC Q96HR PRN PRN Reason: Constipation Stop: 03/11/17 08:32 Calcium Carbonate (Tums) 500 mg GT Q6HR PRN PRN Reason: Indigestion Stop: 03/11/17 08:32 Calcium/Vitamin D (Oscal W/Vitamin D) 1 tab GT DAILY [facility] Stop: 03/11/17 11:59 Last Admin: 01/15/17 08:51 Dose: 1 tab Docusate Sodium (Colace) 100 mg GT TID [facility] Stop: 03/11/17 13:59 Last Admin: 01/15/17 08:51 Dose: 100 mg Ferrous Sulfate (Iron) 220 mg GT DAILY [facility] Stop: 03/11/17 11:59 Last Admin: 01/15/17 08:50 Dose: 220 mg Fludrocortisone Acetate (Florinef) 0.1 mg GT DAILY [facility] Stop: 03/11/17 11:59 Last Admin: 01/15/17 08:51 Dose: 0.1 mg Folic Acid (Folate) 1 mg GT DAILY [facility] Stop: 03/11/17 11:59 Last Admin: 01/15/17 08:51 Dose: 1 mg Dextrose (D5w) 1,000 mls @ 75 mls/hr IV .[id number] [facility] Stop: 03/15/17 06:54 Last Admin: 01/14/17 20:28 Dose: 75 mls/hr Lacosamide (Vimpat) 200 mg GT BID [facility] Stop: 03/11/17 11:29 Last Admin: 01/15/17 08:51 Dose: 200 mg Levothyroxine Sodium (Synthroid) 0.05 mg GT QDAC [facility] Stop: 03/12/17 07:29 Last Admin: 01/15/17 06:56 Dose: 0.05 mg Magnesium Hydroxide (Milk Of Magnesia) 30 ml GT Q72HR PRN PRN Reason: Constipation Stop: 03/11/17 08:32 Metoclopramide HCl (Reglan) 10 mg IVP Q8HR [facility] Stop: 03/14/17 08:40 Last Admin: 01/15/17 04:32 Dose: 10 mg Midodrine (Proamatine) 5 mg GT TID [facility] Stop: 03/11/17 13:59 Last Admin: 01/15/17 08:51 Dose: 5 mg Mupirocin (Bactroban Oint) 1 appl TP BID [facility] Stop: 01/18/17 09:01 Last Admin: 01/15/17 08:52 Dose: 1 appl Sodium Phosphate (Fleet Enema) 135 ml RC Q96HR PRN PRN Reason: IF DULCOLAX NOT EFFECTIVE Stop: 03/11/17 08:32 Sucralfate (Carafate) 1 gm GT QID [facility] Stop: 03/11/17 12:59 Last Admin: 01/15/17 08:50 Dose: 1 gm Ursodiol (Actigall) 300 mg GT DAILY [facility] Stop: 03/11/17 11:59 Last Admin: 01/15/17 08:51 Dose: 300 mg General: Alert, Oriented x3, No acute distress HEENT: Atraumatic, PERRLA, EOMI Neck: Supple Cardiovascular: Regular rate, Normal S1, Normal S2 Lungs: Clear to auscultation Abdomen: Bowel sounds Extremities: no Clubbing, no Cyanosis, no Edema - Procedures Procedures: Procedures Procedure Code Date CHANGE FEEDING DEVICE IN LOW INTEST TRACT, PLATE SENSITIZER APPROACH [id number] 01/10/17 REPLACE G-J TUBE PERC 07565 01/10/17 Assessment/Plan - Assessment Assessment: 41 YO FEMALE WITH MALFUNCTION GJ TUBE THEREFORE IT WAS CHANGED TWICE BECAUSE THE TIP KEPT SLIPPING BACK INTO THE STOMACH UGI SERIES SHOW THE TIP TO BE IN THE STOMACH IF PT CAN'T LIZ TUBE FEEDS MAY LIKELY NEED ANOTHER PROCEDURE TO REPOSITION THE GJ TUBE 1.TRIAL OF TUBE FEEDS 2.CONT SUPP CARE 3.EGD WITH GJ REPOSITIONING
[2017-01-15] MEDS: Dextrose 5% 1,000 ML IV SCH (17:35)
[2017-01-16] MEDS: Dextrose 5% 1,000 ML IV SCH ×3 (05:41→16:40)
[2017-01-16] MEDS: Metoclopramide 5 mg/mL 2mL Vial IVP SCH ×3 (05:41→21:17)
[2017-01-16 06:02] LABS: % BASOPHILS 0.2 % (0.0-2.0); % EOSINOPHILS 9.9 % (0.0-5.0); % LYMPHOCYTES 46.1 % (20.0-50.0); % MONOCYTES 7.8 % (2.0-10.0); MEAN CELL VOLUME 100.2 fl (81-100); MEAN CORPUSCULAR HEMOGLOBIN 34.5 pg (27.0-31.0); MEAN CORPUSCULAR HGB CONC 34.4 pg (28.0-36.0); MEAN PLATELET VOLUME 8.7 fl; NEUTROPHILE ABSOLUTE 1.8 Th/cmm (1.8-8.0); RED BLOOD COUNT 3.89 Mil/cmm (3.80-5.10); RED CELL DISTRIBUTION WIDTH 14.6 % (11.5-20.0)
[2017-01-16 06:03] LABS: HEMOGLOBIN 13.4 gm/dL (12-16)
[2017-01-16 06:04] LABS: PLATELET COUNT 162 Th/cmm (150-400)
[2017-01-16 06:16] LABS: PROTHROMBIN TIME (TEST) 10.4 SECONDS (9.5-11.5)
[2017-01-16 06:19] LABS: ALB/GLOB RATIO 0.9 (1.0-1.8); ALKALINE PHOSPHATASE 607 U/L (34-104); ANION GAP 8.6 (7.0-16.0); BILIRUBIN,TOTAL 0.3 mg/dL (0.3-1.0); BUN - UREA NITROGEN 7 mg/dL (7-25); CALCIUM SERUM 9.4 mg/dL (8.6-10.3); CARBON DIOXIDE 31.4 mEq/L (21.0-31.0); CHLORIDE 104 mEq/L (98-107); CREATININE - SERUM 0.5 mg/dL (0.6-1.2); GLUCOSE 98 mg/dL (70-105); SGOT 41 U/L (13-39); SGPT/ALT 118 U/L (7-52); SODIUM SERUM 140 mEq/L (136-145)
[2017-01-16] MEDS: Levothyroxine 0.05 Mg Tab GT SCH (07:02)
--- NOTE | 2017-01-16 08:05 | General Progress Note ---
Subjective - Review of Systems Service Date: 01/16/17 Subjective: Awake,alert,afebrile. no acute distress. s/p replacement of the GJ tube yesterday. for swallow evaluation. Patient doing fine. tolerating tube feeding. Objective - Results Result Diagrams: 01/16/17 05:52 01/16/17 05:52 Recent Labs: Laboratory Last Values WBC 5.0 Th/cmm (4.8-10.8) D 01/16/17 05:52 RBC 3.89 Mil/cmm (3.80-5.10) 01/16/17 05:52 Hgb 13.4 gm/dL (12-16) D 01/16/17 05:52 Hct 39.0 % (41.0-60) L D 01/16/17 05:52 MCV 100.2 fl (81-100) H 01/16/17 05:52 MCH 34.5 pg (27.0-31.0) H 01/16/17 05:52 MCHC Differential 34.4 pg (28.0-36.0) 01/16/17 05:52 RDW 14.6 % (11.5-20.0) 01/16/17 05:52 Plt Count 162 Th/cmm (150-400) D 01/16/17 05:52 MPV 8.7 fl 01/16/17 05:52 Neutrophils % 36.0 % (40.0-80.0) L 01/16/17 05:52 Lymphocytes % 46.1 % (20.0-50.0) 01/16/17 05:52 Monocytes % 7.8 % (2.0-10.0) 01/16/17 05:52 Eosinophils % 9.9 % (0.0-5.0) H 01/16/17 05:52 Basophils % 0.2 % (0.0-2.0) 01/16/17 05:52 PT 10.4 SECONDS (9.5-11.5) 01/16/17 05:52 INR 1.00 (0.5-1.4) 01/16/17 05:52 PTT (Actin FS) 31.5 SECONDS (26.0-38.0) 01/11/17 04:45 Sodium 140 mEq/L (136-145) 01/16/17 05:52 Potassium 4.0 mEq/L (3.5-5.1) 01/16/17 05:52 Chloride 104 mEq/L (98-107) 01/16/17 05:52 Carbon Dioxide 31.4 mEq/L (21.0-31.0) H 01/16/17 05:52 Anion Gap 8.6 (7.0-16.0) 01/16/17 05:52 BUN 7 mg/dL (7-25) 01/16/17 05:52 Creatinine 0.5 mg/dL (0.6-1.2) L 01/16/17 05:52 Est GFR ( Amer) > 60.0 ml/min (>90) 01/16/17 05:52 Est GFR (Non-Af Amer) > 60.0 ml/min 01/16/17 05:52 BUN/Creatinine Ratio 14.0 01/16/17 05:52 Glucose 98 mg/dL (70-105) 01/16/17 05:52 POC Glucose 98 MG/DL (70 - 105) 01/11/17 10:26 Calcium 9.4 mg/dL (8.6-10.3) 01/16/17 05:52 Iron 214 ug/dL (27-159) H 01/10/17 11:53 TIBC 244 ug/dL (250-450) L 01/10/17 11:53 Iron Saturation 88 % (15-55) H 01/10/17 11:53 Unsaturated IBC 30 ug/dL (131-425) L 01/10/17 11:53 Ferritin 2237 ng/mL (15-150) H 01/10/17 11:53 Total Bilirubin 0.3 mg/dL (0.3-1.0) 01/16/17 05:52 Direct Bilirubin 0.02 mg/dL (0.0-0.2) 01/11/17 04:45 AST 41 U/L (13-39) H 01/16/17 05:52 ALT 118 U/L (7-52) H 01/16/17 05:52 Alkaline Phosphatase 607 U/L (34-104) H 01/16/17 05:52 Ammonia 78 umol/L (16-53) H 01/10/17 00:40 Total Protein 7.2 gm/dL (6.0-8.3) 01/16/17 05:52 Albumin 3.4 gm/dL (3.7-5.3) L 01/16/17 05:52 Globulin 3.8 gm/dL 01/16/17 05:52 Albumin/Globulin Ratio 0.9 (1.0-1.8) L 01/16/17 05:52 [id number]-8-[id number] 137 mg/dL (90-200) 01/10/17 11:53 Ceruloplasmin 32.1 mg/dL (19.0-39.0) 01/11/17 04:45 Amylase 115 U/L (29-103) H 01/10/17 00:40 Tumor Marker AFP 5.7 ng/mL (0.0-8.3) 01/10/17 11:53 TSH 2.12 uIU/ml (0.34-5.60) 01/10/17 00:40 Urine Source CLEAN C 01/10/17 02:45 Urine Color YELLOW 01/10/17 02:45 Urine Clarity HAZY (CLEAR) 01/10/17 02:45 Urine pH 8.0 (4.6 - 8.0) 01/10/17 02:45 Ur Specific [place] 1.010 (1.005-1.030) 01/10/17 02:45 Urine Protein TRACE mg/dL (NEGATIVE) 01/10/17 02:45 Urine Glucose (UA) NEGATIVE mg/dL (NEGATIVE) 01/10/17 02:45 Urine Ketones NEGATIVE mg/dL (NEGATIVE) 01/10/17 02:45 Urine Blood NEGATIVE (NEGATIVE) 01/10/17 02:45 Urine Nitrate NEGATIVE (NEGATIVE) 01/10/17 02:45 Urine Bilirubin NEGATIVE (NEGATIVE) 01/10/17 02:45 Urine Urobilinogen 0.2 E.U./dL (0.2 - 1.0) 01/10/17 02:45 Ur Leukocyte Esterase NEGATIVE (NEGATIVE) 01/10/17 02:45 Urine RBC 0-2 /hpf (0-5) 01/10/17 02:45 Urine WBC 0-2 /hpf (0-5) 01/10/17 02:45 Ur Epithelial Cells OCCASIONAL /lpf (FEW) 01/10/17 02:45 Amorphous Sediment MODERATE PHOSPHATES (NONE SEEN) 01/10/17 02:45 Urine Bacteria FEW /hpf (NONE SEEN) 01/10/17 02:45 Salicylates < 25.0 mg/L (30.0-100.0) L 01/10/17 08:23 Acetaminophen < 10.0 ug/mL (10.0-30.0) L 01/10/17 08:23 Anti-Mitochondrial Ab 10.8 Units (0.0-20.0) 01/10/17 11:53 Smooth Muscle IgG Ab 16 Units (0-19) 01/10/17 11:53 Hepatitis A IgM Ab Negative (Negative) 01/10/17 11:53 Hep Bs Antigen Negative (Negative) 01/10/17 11:53 Hep B Core IgM Ab Negative (Negative) 01/10/17 11:53 Hepatitis C Antibody <0.1 s/co ratio (0.0-0.9) 01/10/17 11:53 - Physical Exam Vitals and I&O: Vital Signs Temp 97.2 F 01/16/17 07:34 Pulse 80 01/16/17 07:34 Resp 17 01/16/17 07:34 BP 103/72 01/16/17 07:34 Pulse Ox 98 01/16/17 07:34 Intake & Output 01/15/17 01/16/17 01/16/17 18:59 06:59 18:59 Intake Total 1000 907.5 Balance 1000 907.5 Weight (lbs) 54.431 kg Intake: Intake, IV Amount 1000 907.5 Dextrose 5% 1,000 ml @ 75 1000 907.5 mls/hr IV .[id number] [facility] Rx#:[id number] Other: # Voids 3 # Bowel Movements 0 Active Medications: Current Medications Acetaminophen (Tylenol) 650 mg GT Q4HR PRN PRN Reason: Pain or Fever >101 Stop: 03/11/17 08:32 Acetazolamide (Diamox) 250 mg GT MoFr [facility] Stop: 03/14/17 08:59 Last Admin: 01/13/17 15:10 Dose: Not Given Alendronate Sodium (Fosamax) 70 mg PO QFRI@0630 [facility] Stop: 03/14/17 06:29 Last Admin: 01/13/17 15:09 Dose: Not Given Ascorbic Acid (Vitamin C) 500 mg GT DAILY [facility] Stop: 03/11/17 11:59 Last Admin: 01/15/17 08:51 Dose: 500 mg Bisacodyl (Dulcolax 10 Mg Supp) 10 mg RC Q96HR PRN PRN Reason: Constipation Stop: 03/11/17 08:32 Calcium Carbonate (Tums) 500 mg GT Q6HR PRN PRN Reason: Indigestion Stop: 03/11/17 08:32 Calcium/Vitamin D (Oscal W/Vitamin D) 1 tab GT DAILY [facility] Stop: 03/11/17 11:59 Last Admin: 01/15/17 08:51 Dose: 1 tab Docusate Sodium (Colace) 100 mg GT TID [facility] Stop: 03/11/17 13:59 Last Admin: 01/15/17 20:28 Dose: 100 mg Ferrous Sulfate (Iron) 220 mg GT DAILY [facility] Stop: 03/11/17 11:59 Last Admin: 01/15/17 08:50 Dose: 220 mg Fludrocortisone Acetate (Florinef) 0.1 mg GT DAILY [facility] Stop: 03/11/17 11:59 Last Admin: 01/15/17 08:51 Dose: 0.1 mg Folic Acid (Folate) 1 mg GT DAILY [facility] Stop: 03/11/17 11:59 Last Admin: 01/15/17 08:51 Dose: 1 mg Dextrose (D5w) 1,000 mls @ 75 mls/hr IV .[id number] [facility] Stop: 03/15/17 06:54 Last Admin: 01/16/17 05:41 Dose: 75 mls/hr Lacosamide (Vimpat) 200 mg GT BID [facility] Stop: 03/11/17 11:29 Last Admin: 01/15/17 16:13 Dose: 200 mg Levothyroxine Sodium (Synthroid) 0.05 mg GT QDAC [facility] Stop: 03/12/17 07:29 Last Admin: 01/16/17 07:02 Dose: Not Given Magnesium Hydroxide (Milk Of Magnesia) 30 ml GT Q72HR PRN PRN Reason: Constipation Stop: 03/11/17 08:32 Metoclopramide HCl (Reglan) 10 mg IVP Q8HR [facility] Stop: 03/14/17 08:40 Last Admin: 01/16/17 05:41 Dose: 10 mg Midodrine (Proamatine) 5 mg GT TID [facility] Stop: 03/11/17 13:59 Last Admin: 01/15/17 20:28 Dose: 5 mg Mupirocin (Bactroban Oint) 1 appl TP BID [facility] Stop: 01/18/17 09:01 Last Admin: 01/15/17 16:14 Dose: 1 appl Sodium Phosphate (Fleet Enema) 135 ml RC Q96HR PRN PRN Reason: IF DULCOLAX NOT EFFECTIVE Stop: 03/11/17 08:32 Sucralfate (Carafate) 1 gm GT QID [facility] Stop: 03/11/17 12:59 Last Admin: 01/15/17 20:28 Dose: 1 gm Ursodiol (Actigall) 300 mg GT DAILY [facility] Stop: 03/11/17 11:59 Last Admin: 01/15/17 08:51 Dose: 300 mg General: Alert, Oriented x3, No acute distress HEENT: Atraumatic, PERRLA, EOMI Neck: Supple Cardiovascular: Regular rate, Normal S1, Normal S2 Lungs: Clear to auscultation Abdomen: Bowel sounds Extremities: no Clubbing, no Cyanosis, no Edema - Procedures Procedures: Procedures Procedure Code Date CHANGE FEEDING DEVICE IN LOW INTEST TRACT, SEMICONDUCTOR WAFERS MARKER APPROACH [id number] 01/10/17 REPLACE G-J TUBE PERC 56364 01/10/17 Assessment/Plan - Assessment Assessment: malfunctioning gtube cirrhosis anemia seizures htn pacemaker - Plan Plan: malfunctioning gtube now replaced of GJ tube ... still having residuals. will add reglan. cirrhosis anemia seizures htn pacemaker Nutritional Asmnt/Malnutr-PDOC - Dietary Evaluation Malnutrition Findings (Please click <Entered> for more info): Nutritional Asmnt/Malnutrition Start: 01/11/17 12: 05 Text: Status: Complete Freq: Document 01/11/17 12:05 GSUN (Rec: 01/11/17 12:27 GSUN [email or web address]) Nutritional Asmnt/Malnutrition Patient General Information Nutritional Screening High Risk Screening Diagnosis Malfunctioning g-tube, cirrhosis, anemia, seizures, HTN, pacemaker Pertinent Medical Hx/Surgical Hx CAD, HTN, hyperlipidemia, seizure, cerebral palsy, dementia, gastritis, peptic ulcer, chronic liver disease, cholecystectomy Subjective Information 41 year old female. Pt was away for EGD during visit. Spoke to DONNA Nesbitt, j-tube replacement pending. Current Diet Order/ Nutrition Support NPO Pertinent Medications Vitamin C, dulcolax, Tums, Oscal W/Vitamin D, D5-0.9%ns, Colace, Iron, Folate, MOM, Reglan, Fleet Enema, Carafate Pertinent Labs AST 110H, ALT 249H, alkaline phosphatase 574H, ammonia 78H Nutritional Hx/Data Height 1.37 m Height (Calculated Centimeters) 137.2 Current Weight (lbs) 51.846 kg Weight (Calculated Kilograms) 51.8 Weight (Calculated Grams) 26605.6 Weight Status Overweight GI Symptoms Difficult in: Chewing Swallowing Skin Integrity/Comment: [place] 13. Left neck reddened, skin intact. Estimated Nutritional Goals BEE in Kcals: Using Current wt Calories/Kcals/Kg CBW 114.3lb/52kg Kcals Calculated 1144-1404kcal (22-27kcal/kg) Protein: Using Current wt Protein Calculated 31-42g (0.6-0.8g/kg) Fluid: ml 1144-1404ml (1ml/kcal) Nutritional Problem 2. Problem Problem Inadequate intake from enteral nutrition related to Etiology j-tube malfunction aeb Signs/Symptoms: pending replacement, currently NPO 1. Problem Problem Altered GI function related to Etiology chronic liver disease aeb Signs/Symptoms: AST 110H, ALT 249H, alkaline phosphatase 574H, ammonia 78H Intervention/Recommendation Comments 1. When medically feasible to resume feeding, recommend Fibersource at 40ml/hr x 24hrs , providing 960ml total volume , 1152kcal, 52g protein. Expected Outcomes/Goals Expected Outcomes/Goals 1. Pt to resume tube feeding and meet 100% of estimated nutritinoal needs with tolerance.
[2017-01-16] MEDS: Docusate Sodium 100 mg/10 mL UD GT SCH ×3 (09:17→21:17)
[2017-01-16] MEDS: Calcium Carb/Vit D 500 mg/200 U Tab GT SCH (09:17)
[2017-01-16] MEDS: Multivitamin w/ Minerals Tab GT SCH (09:17)
[2017-01-16] MEDS: Ferrous Sulfate 300 MG/5 ML UDC GT SCH (09:17)
[2017-01-16] MEDS ORDERED: Lidocaine 2% Gel 5 mL TP ONE (14:25)
--- NOTE | 2017-01-16 20:04 | Operative Report ---
DATE OF SURGERY: 01/16/2017 PROCEDURE: Gastrojejunostomy tube placement. INDICATION FOR PROCEDURE: The patient with dysphagia, recurrent aspiration, had couple of gastrojejunostomy tube that they always keep flapping back to the stomach. This was done to advance into the duodenum and secured with that. CONSENT: Informed consent was obtained from the patient's family. ANESTHESIA USED: Propofol. PREOPERATIVE DIAGNOSIS: Dysphagia. POSTOPERATIVE DIAGNOSES: Dysphagia, status post gastrojejunostomy tube placement into the second and third portion of duodenum. PROCEDURE IN DETAIL: The patient was sedated. Then, Olympus colonoscope was inserted through the mouth and advanced to the stomach. Then, the gastrojejunostomy tube was pulled to the gastric wall and then the thread was captured with an endoclip. Then, endoclip was pulled back to the scope. Then, the scope was advanced holding the tube to the second and third portion of duodenum, could not advance it any more. it was clipped to the wall. So, the scope was then withdrawn. Tube was inflated, secured in placed. The patient tolerated the procedure well. There were no immediate postoperative complications. RECOMMENDATIONS: Resume feeding. Thank you, Dr. Ariza for allowing me to participate in the care of the patient. If you have any further questions, please let me know. JOB# [id number] BARBARA
[2017-01-17] MEDS: Dextrose 5% 1,000 ML IV SCH (03:51)
[2017-01-17] MEDS ORDERED: Metoclopramide 5 mg/mL 2mL Vial ONE (04:25)
[2017-01-17] MEDS: Metoclopramide 5 mg/mL 2mL Vial IVP SCH ×2 (04:34→14:00)
[2017-01-17] MEDS: Levothyroxine 0.05 Mg Tab GT SCH (06:45)
--- NOTE | 2017-01-17 08:13 | General Progress Note ---
Subjective - Review of Systems Service Date: 01/17/17 Subjective: Awake,alert,afebrile. no acute distress. s/p replacement of the GJ tube yesterday. Patient doing fine. tolerating tube feeding. Objective - Results Result Diagrams: 01/16/17 05:52 01/16/17 05:52 Recent Labs: Laboratory Last Values WBC 5.0 Th/cmm (4.8-10.8) D 01/16/17 05:52 RBC 3.89 Mil/cmm (3.80-5.10) 01/16/17 05:52 Hgb 13.4 gm/dL (12-16) D 01/16/17 05:52 Hct 39.0 % (41.0-60) L D 01/16/17 05:52 MCV 100.2 fl (81-100) H 01/16/17 05:52 MCH 34.5 pg (27.0-31.0) H 01/16/17 05:52 MCHC Differential 34.4 pg (28.0-36.0) 01/16/17 05:52 RDW 14.6 % (11.5-20.0) 01/16/17 05:52 Plt Count 162 Th/cmm (150-400) D 01/16/17 05:52 MPV 8.7 fl 01/16/17 05:52 Neutrophils % 36.0 % (40.0-80.0) L 01/16/17 05:52 Lymphocytes % 46.1 % (20.0-50.0) 01/16/17 05:52 Monocytes % 7.8 % (2.0-10.0) 01/16/17 05:52 Eosinophils % 9.9 % (0.0-5.0) H 01/16/17 05:52 Basophils % 0.2 % (0.0-2.0) 01/16/17 05:52 PT 10.4 SECONDS (9.5-11.5) 01/16/17 05:52 INR 1.00 (0.5-1.4) 01/16/17 05:52 PTT (Actin FS) 31.5 SECONDS (26.0-38.0) 01/11/17 04:45 Sodium 140 mEq/L (136-145) 01/16/17 05:52 Potassium 4.0 mEq/L (3.5-5.1) 01/16/17 05:52 Chloride 104 mEq/L (98-107) 01/16/17 05:52 Carbon Dioxide 31.4 mEq/L (21.0-31.0) H 01/16/17 05:52 Anion Gap 8.6 (7.0-16.0) 01/16/17 05:52 BUN 7 mg/dL (7-25) 01/16/17 05:52 Creatinine 0.5 mg/dL (0.6-1.2) L 01/16/17 05:52 Est GFR ( Amer) > 60.0 ml/min (>90) 01/16/17 05:52 Est GFR (Non-Af Amer) > 60.0 ml/min 01/16/17 05:52 BUN/Creatinine Ratio 14.0 01/16/17 05:52 Glucose 98 mg/dL (70-105) 01/16/17 05:52 POC Glucose 95 MG/DL (70 - 105) 01/16/17 14:30 Calcium 9.4 mg/dL (8.6-10.3) 01/16/17 05:52 Iron 214 ug/dL (27-159) H 01/10/17 11:53 TIBC 244 ug/dL (250-450) L 01/10/17 11:53 Iron Saturation 88 % (15-55) H 01/10/17 11:53 Unsaturated IBC 30 ug/dL (131-425) L 01/10/17 11:53 Ferritin 2237 ng/mL (15-150) H 01/10/17 11:53 Total Bilirubin 0.3 mg/dL (0.3-1.0) 01/16/17 05:52 Direct Bilirubin 0.02 mg/dL (0.0-0.2) 01/11/17 04:45 AST 41 U/L (13-39) H 01/16/17 05:52 ALT 118 U/L (7-52) H 01/16/17 05:52 Alkaline Phosphatase 607 U/L (34-104) H 01/16/17 05:52 Ammonia 78 umol/L (16-53) H 01/10/17 00:40 Total Protein 7.2 gm/dL (6.0-8.3) 01/16/17 05:52 Albumin 3.4 gm/dL (3.7-5.3) L 01/16/17 05:52 Globulin 3.8 gm/dL 01/16/17 05:52 Albumin/Globulin Ratio 0.9 (1.0-1.8) L 01/16/17 05:52 Fbsra-8-Ljldcdscezg 137 mg/dL (90-200) 01/10/17 11:53 Ceruloplasmin 32.1 mg/dL (19.0-39.0) 01/11/17 04:45 Amylase 115 U/L (29-103) H 01/10/17 00:40 Tumor Marker AFP 5.7 ng/mL (0.0-8.3) 01/10/17 11:53 TSH 2.12 uIU/ml (0.34-5.60) 01/10/17 00:40 Urine Source CLEAN C 01/10/17 02:45 Urine Color YELLOW 01/10/17 02:45 Urine Clarity HAZY (CLEAR) 01/10/17 02:45 Urine pH 8.0 (4.6 - 8.0) 01/10/17 02:45 Ur Specific [place] 1.010 (1.005-1.030) 01/10/17 02:45 Urine Protein TRACE mg/dL (NEGATIVE) 01/10/17 02:45 Urine Glucose (UA) NEGATIVE mg/dL (NEGATIVE) 01/10/17 02:45 Urine Ketones NEGATIVE mg/dL (NEGATIVE) 01/10/17 02:45 Urine Blood NEGATIVE (NEGATIVE) 01/10/17 02:45 Urine Nitrate NEGATIVE (NEGATIVE) 01/10/17 02:45 Urine Bilirubin NEGATIVE (NEGATIVE) 01/10/17 02:45 Urine Urobilinogen 0.2 E.U./dL (0.2 - 1.0) 01/10/17 02:45 Ur Leukocyte Esterase NEGATIVE (NEGATIVE) 01/10/17 02:45 Urine RBC 0-2 /hpf (0-5) 01/10/17 02:45 Urine WBC 0-2 /hpf (0-5) 01/10/17 02:45 Ur Epithelial Cells OCCASIONAL /lpf (FEW) 01/10/17 02:45 Amorphous Sediment MODERATE PHOSPHATES (NONE SEEN) 01/10/17 02:45 Urine Bacteria FEW /hpf (NONE SEEN) 01/10/17 02:45 Salicylates < 25.0 mg/L (30.0-100.0) L 01/10/17 08:23 Acetaminophen < 10.0 ug/mL (10.0-30.0) L 01/10/17 08:23 Anti-Mitochondrial Ab 10.8 Units (0.0-20.0) 01/10/17 11:53 Smooth Muscle IgG Ab 16 Units (0-19) 01/10/17 11:53 Hepatitis A IgM Ab Negative (Negative) 01/10/17 11:53 Hep Bs Antigen Negative (Negative) 01/10/17 11:53 Hep B Core IgM Ab Negative (Negative) 01/10/17 11:53 Hepatitis C Antibody <0.1 s/co ratio (0.0-0.9) 01/10/17 11:53 - Physical Exam Vitals and I&O: Vital Signs Temp 97.2 F 01/17/17 07:33 Pulse 80 01/17/17 07:33 Resp 18 01/17/17 07:33 BP 116/72 01/17/17 07:33 Pulse Ox 100 01/17/17 07:33 Intake & Output 01/16/17 01/17/17 01/17/17 18:59 06:59 18:59 Intake Total 913.75 748.75 Balance 913.75 748.75 Weight (lbs) 51.71 kg Intake: Intake, IV Amount 913.75 748.75 Dextrose 5% 1,000 ml @ 75 913.75 748.75 mls/hr IV .[id number] [facility] Rx#:[id number] Other: # Voids 4 # Bowel Movements 0 Active Medications: Current Medications Acetaminophen (Tylenol) 650 mg GT Q4HR PRN PRN Reason: Pain or Fever >101 Stop: 03/11/17 08:32 Acetazolamide (Diamox) 250 mg GT MoFr [facility] Stop: 03/14/17 08:59 Last Admin: 01/16/17 09:16 Dose: Not Given Alendronate Sodium (Fosamax) 70 mg PO QFRI@0630 [facility] Stop: 03/14/17 06:29 Last Admin: 01/13/17 15:09 Dose: Not Given Ascorbic Acid (Vitamin C) 500 mg GT DAILY [facility] Stop: 03/11/17 11:59 Last Admin: 01/16/17 09:16 Dose: Not Given Bisacodyl (Dulcolax 10 Mg Supp) 10 mg RC Q96HR PRN PRN Reason: Constipation Stop: 03/11/17 08:32 Calcium Carbonate (Tums) 500 mg GT Q6HR PRN PRN Reason: Indigestion Stop: 03/11/17 08:32 Calcium/Vitamin D (Oscal W/Vitamin D) 1 tab GT DAILY [facility] Stop: 03/11/17 11:59 Last Admin: 01/16/17 09:17 Dose: Not Given Docusate Sodium (Colace) 100 mg GT TID [facility] Stop: 03/11/17 13:59 Last Admin: 01/16/17 21:17 Dose: 100 mg Ferrous Sulfate (Iron) 220 mg GT DAILY [facility] Stop: 03/11/17 11:59 Last Admin: 01/16/17 09:17 Dose: Not Given Fludrocortisone Acetate (Florinef) 0.1 mg GT DAILY [facility] Stop: 03/11/17 11:59 Last Admin: 01/16/17 09:17 Dose: Not Given Folic Acid (Folate) 1 mg GT DAILY [facility] Stop: 03/11/17 11:59 Last Admin: 01/16/17 09:17 Dose: Not Given Dextrose (D5w) 1,000 mls @ 75 mls/hr IV .[id number] [facility] Stop: 03/15/17 06:54 Last Admin: 01/17/17 03:51 Dose: 75 mls/hr Lacosamide (Vimpat) 200 mg GT BID [facility] Stop: 03/11/17 11:29 Last Admin: 01/16/17 16:41 Dose: 200 mg Levothyroxine Sodium (Synthroid) 0.05 mg GT QDAC [facility] Stop: 03/12/17 07:29 Last Admin: 01/17/17 06:45 Dose: 0.05 mg Magnesium Hydroxide (Milk Of Magnesia) 30 ml GT Q72HR PRN PRN Reason: Constipation Stop: 03/11/17 08:32 Metoclopramide HCl (Reglan) 10 mg IVP Q8HR [facility] Stop: 03/14/17 08:40 Last Admin: 01/17/17 04:34 Dose: 10 mg Midodrine (Proamatine) 5 mg GT TID [facility] Stop: 03/11/17 13:59 Last Admin: 01/16/17 21:16 Dose: 5 mg Mupirocin (Bactroban Oint) 1 appl TP BID [facility] Stop: 01/18/17 09:01 Last Admin: 01/16/17 16:59 Dose: 1 appl Sodium Phosphate (Fleet Enema) 135 ml RC Q96HR PRN PRN Reason: IF DULCOLAX NOT EFFECTIVE Stop: 03/11/17 08:32 Sucralfate (Carafate) 1 gm GT QID [facility] Stop: 03/11/17 12:59 Last Admin: 01/16/17 21:16 Dose: 1 gm Ursodiol (Actigall) 300 mg GT DAILY [facility] Stop: 03/11/17 11:59 Last Admin: 01/16/17 09:17 Dose: Not Given General: Alert, Oriented x3, No acute distress HEENT: Atraumatic, PERRLA, EOMI Neck: Supple Cardiovascular: Regular rate, Normal S1, Normal S2 Lungs: Clear to auscultation Abdomen: Bowel sounds Extremities: no Clubbing, no Cyanosis, no Edema - Procedures Procedures: Procedures Procedure Code Date CHANGE FEEDING DEVICE IN LOW INTEST TRACT, SINGLE CORNER CUTTER APPROACH [id number] 01/10/17 REPLACE G-J TUBE PERC 26269 01/10/17 Assessment/Plan - Assessment Assessment: malfunctioning gtube cirrhosis anemia seizures htn pacemaker dehydration - Plan Plan: malfunctioning gtube now replaced of GJ tube ... continue current diet. cirrhosis anemia seizures htn pacemaker dehydration resolved. [facility]. Nutritional Asmnt/Malnutr-PDOC - Dietary Evaluation Malnutrition Findings (Please click <Entered> for more info): Nutritional Asmnt/Malnutrition Start: 01/11/17 12: 05 Text: Status: Complete Freq: Document 01/11/17 12:05 GSUN (Rec: 01/11/17 12:27 TIFFANI [email or web address]) Nutritional Asmnt/Malnutrition Patient General Information Nutritional Screening High Risk Screening Diagnosis Malfunctioning g-tube, cirrhosis, anemia, seizures, HTN, pacemaker Pertinent Medical Hx/Surgical Hx CAD, HTN, hyperlipidemia, seizure, cerebral palsy, dementia, gastritis, peptic ulcer, chronic liver disease, cholecystectomy Subjective Information 41 year old female. Pt was away for EGD during visit. Spoke to RN Delicia, j-tube replacement pending. Current Diet Order/ Nutrition Support NPO Pertinent Medications Vitamin C, dulcolax, Tums, Oscal W/Vitamin D, D5-0.9%ns, Colace, Iron, Folate, MOM, Reglan, Fleet Enema, Carafate Pertinent Labs AST 110H, ALT 249H, alkaline phosphatase 574H, ammonia 78H Nutritional Hx/Data Height 1.37 m Height (Calculated Centimeters) 137.2 Current Weight (lbs) 51.846 kg Weight (Calculated Kilograms) 51.8 Weight (Calculated Grams) 50602.6 Weight Status Overweight GI Symptoms Difficult in: Chewing Swallowing Skin Integrity/Comment: [place] 13. Left neck reddened, skin intact. Estimated Nutritional Goals BEE in Kcals: Using Current wt Calories/Kcals/Kg CBW 114.3lb/52kg Kcals Calculated 1144-1404kcal (22-27kcal/kg) Protein: Using Current wt Protein Calculated 31-42g (0.6-0.8g/kg) Fluid: ml 1144-1404ml (1ml/kcal) Nutritional Problem 2. Problem Problem Inadequate intake from enteral nutrition related to Etiology j-tube malfunction aeb Signs/Symptoms: pending replacement, currently NPO 1. Problem Problem Altered GI function related to Etiology chronic liver disease aeb Signs/Symptoms: AST 110H, ALT 249H, alkaline phosphatase 574H, ammonia 78H Intervention/Recommendation Comments 1. When medically feasible to resume feeding, recommend Fibersource at 40ml/hr x 24hrs , providing 960ml total volume , 1152kcal, 52g protein. Expected Outcomes/Goals Expected Outcomes/Goals 1. Pt to resume tube feeding and meet 100% of estimated nutritinoal needs with tolerance.
[2017-01-17] MEDS: Docusate Sodium 100 mg/10 mL UD GT SCH ×2 (08:27→14:09)
[2017-01-17] MEDS: Multivitamin w/ Minerals Tab GT SCH (08:27)
[2017-01-17] MEDS: Ferrous Sulfate 300 MG/5 ML UDC GT SCH (08:27)
[2017-01-17] MEDS: Calcium Carb/Vit D 500 mg/200 U Tab GT SCH (08:28)
--- NOTE | 2017-01-17 20:10 | Discharge Summary ---
DATE OF DISCHARGE: 01/17/2017 PRELIMINARY DIAGNOSES: 1. Malfunctioning G-tube. 2. Cirrhosis. 3. Anemia. 4. Seizure disorder. 5. Hypertension. 6. Status post pacemaker placement. DISCHARGE DIAGNOSES: 1. Malfunctioning G-tube, now replaced. 2. Cirrhosis. 3. Anemia. 4. Seizure disorder. 5. Hypertension. 6. Status post pacemaker placement. BRIEF HISTORY OF PRESENT ILLNESS: This is a 41-year-old female who presents to [facility] ER for evaluation and treatment. She was noted to have leaking from her G-tube and was subsequently transferred to the ER for further evaluation and treatment and possible replacement. The patient has a history of cirrhosis, anemia, seizure disorder, and hypertension. While in the ER, the patient underwent routine lab work. Her initial lab work revealed a white count, which was normal at 4.4, hemoglobin 12.2, hematocrit 36.5, and platelets 162,000. Her initial CMP shows sodium was 134, potassium 4.3, chloride 100, bicarbonate 30.1, BUN 19, and creatinine 0.4. Her AST was noted to be elevated at 112. ALT also elevated at 252. Her alkaline phosphatase was also elevated at 566. Her ammonia level was elevated at 78. TSH was normal at 2.12. Urinalysis was also ordered, which was essentially negative. The patient was subsequently admitted for further evaluation and treatment. HOSPITAL COURSE: The patient was seen and evaluated by GI. Please see dictated report. The patient's GJ tube had been replaced and the patient was then restarted on G-tube feeding. The patient tolerated her G-tube feeding, was given supplemental IV fluids during this time, was stable during her entire visit, was subsequently transferred in stable condition to transfer back to the nursing facility to continue her current medications. [facility]# [id number]
== END 2017-01-17 14:20 | disposition home or self-care (01) | DRG 393 ==
LOC: ER 23:35 → MSI 01-10 06:30
PROVIDERS: ADMIT Family Medicine; ATTEND Family Medicine
PROC: 0DHA3UZ Insertion of Feeding Device into Jejunum, Percutaneous Approach (ICD-10-PCS; principal; 2017-01-16)
PROC: 0D20XUZ Change Feeding Device in Upper Intestinal Tract, External Approach (ICD-10-PCS; 2017-01-16)
DX: K94.23 Gastrostomy malfunction (principal); G80.0 Spastic quadriplegic cerebral palsy; K74.60 Unspecified cirrhosis of liver; F03.90 Unspecified dementia, unspecified severity, without behavioral disturbance, psychotic disturbance, mood disturbance, and anxiety; K94.13 Enterostomy malfunction; I10 Essential (primary) hypertension; D64.9 Anemia, unspecified; G40.909 Epilepsy, unspecified, not intractable, without status epilepticus; K21.9 Gastro-esophageal reflux disease without esophagitis; E78.5 Hyperlipidemia, unspecified; R13.10 Dysphagia, unspecified; I25.10 Atherosclerotic heart disease of native coronary artery without angina pectoris; Y83.8 Other surgical procedures as the cause of abnormal reaction of the patient, or of later complication, without mention of misadventure at the time of the procedure; Y92.89 Other specified places as the place of occurrence of the external cause; Z79.899 Other long term (current) drug therapy; Z95.0 Presence of cardiac pacemaker; Z90.49 Acquired absence of other specified parts of digestive tract
CPT/HCPCS: 36415-UA; 71010-TC; 76700-TC; 80048-TC; 80053-TC; 80074-90; 80329-TC; 81001-TC; 82103-90; 82105-90; 82140-TC; 82150-TC; 82248-TC; 82390-90; 82728-90; 82948-90; 83516-90; 83540-90; 83550-90; 84443-TC; 85025-TC; 85610-TC; 85730-TC; 86255-90; 93005; 94760; J2704; J2765; J3480; J7042; J7070; X3401; Z7506; Z7508; Z7610

== ENCOUNTER 2017-05-26 12:36 | Emergency (ER) | payer MEDICARE, MEDICAID ==
--- NOTE | 2017-05-26 12:54 | ED Physician Chart ---
ED Chief Complaint/HPI - Patient Information Date Seen:: 05/26/17 Time Seen:: 12:52 Chief Complaint:: Emesis History of Present Illness:: 42 yo female with cerebral palsy, was brought from SNF to ER for evaluation of coffee ground emesis 1 hour ago. The emesis was mostly G-tube feed content. Patient had been constipated for many days. Allergies:: Allergies Allergy/AdvReac Type Severity Reaction Status Date / Time No Known Allergies Allergy Verified 01/09/17 23:50 ED Review of Systems - Review of Systems General/Constitutional: No fever Skin: No bruising Head: No headache Eyes: No pain ENT: No nasal drainage Neck: No neck pain Cardio Vascular: No chest pain Pulmonary: No SOB GI: Vomiting, Constipation Musculoskeletal: No bone or joint pain Neurological: No focal symptoms ED Past Medical History - Past Medical History Past Medical History: Other (cerebral palsy) Social History: Non Smoker, No Alcohol, No Drug Use Surgical History: Cholecystectomy, PEG/GTube (J tube) Family Medical History - Family Member Mother History Unknown: Yes ED Physical Exam - Physical Examination General/Constitutional: Awake Eyes: PERRL Skin: No ecchymosis ENMT: Nasal exam nl Neck: No nuchal rigidity Respiratory: Clear to Auscultation Cardio Vascular: RRR, No murmur, gallop, rubs, NL S1 S2 Other GI comments:: G-tube intact, abdomen soft, distended Extremities: normal strength in all extremities Neuro/Psych: No focal deficits ED Labs/Radiology/EKG Results - Radiology Results Results: CXR: no focal consolidation CT abdomen/pelvis: no acute abnormality, G-tube, fecal impaction, chronic dislocation of the left hip - EKG Interpretations EKG Time:: 13:25 Rate & Rhythm: Sinus rhythm ED Assessment - Assessment General Assessment: Dehydration Fecal impaction Assessment/Comments:: CBC, CMP PT/PTT CXR, EKG CT abdomen/pelvis After Fleet enema, large amount of stool came out, patient felt better D/c back to SNF F/u PCP or return to ER if symptoms worsen ED Septic Shock - . Is Septic Shock (SBP<90, OR Lactate>4 mmol\L) present?: No ED Reassessment (Disposition) - Reassessment Reassessment Condition:: Improved - Patient Disposition Discharge/Transfer:: [facility] - [facility] ED Discharge Plan - Patient Disposition Admit/Discharge/Transfer: Discharge/Transfered to SNF Instructions: Fecal Impaction
--- NOTE | 2017-05-26 13:30 | Diagnostic Imaging Report ---
Portable chest x-ray HISTORY: Shortness of breath The exam is very limited due to difficulty in patient positioning and associated with marked rotation. The periphery of the left lower chest is obscured by the patient's overlying arm. There is a very poor inspiration. The heart appears enlarged. Cardiac pacemaker lead wires project over the right atrium and right ventricle. Allowing for the limitations, no obvious focal pulmonary processes are seen. IMPRESSION: 1. Limited exam as noted above 2. No obvious focal pulmonary processes
[2017-05-26 13:41] LABS: INR 1.05 (0.5-1.4); PROTHROMBIN TIME (TEST) 10.9 SECONDS (9.5-11.5)
[2017-05-26 13:44] LABS: HEMATOCRIT 37.7 % (41.0-60); HEMOGLOBIN 12.8 gm/dL (12-16); MEAN CORPUSCULAR HEMOGLOBIN 36.7 pg (27.0-31.0); MEAN PLATELET VOLUME 8.5 fl; PLATELET COUNT 182 Th/cmm (150-400); RED CELL DISTRIBUTION WIDTH 15.5 % (11.5-20.0)
[2017-05-26 13:45] LABS: ALBUMIN 3.6 gm/dL (3.7-5.3); ALKALINE PHOSPHATASE 838 U/L (34-104); ANION GAP 9.2 (7.0-16.0); BILIRUBIN,TOTAL 0.6 mg/dL (0.3-1.0); BUN - UREA NITROGEN 27 mg/dL (7-25); CARBON DIOXIDE 31.5 mEq/L (21.0-31.0); CHLORIDE 102 mEq/L (98-107); CREATININE - SERUM 0.5 mg/dL (0.6-1.2); GFR AFRICAN-AMERICAN > 60.0 ml/min (>90); GFR NON AFRICAN-AMERICAN > 60.0 ml/min; GLUCOSE 85 mg/dL (70-105); POTASSIUM SERUM 4.7 mEq/L (3.5-5.1); SGOT 97 U/L (13-39); SGPT/ALT 141 U/L (7-52); SODIUM SERUM 138 mEq/L (136-145); TOTAL PROTEIN,SERUM 7.4 gm/dL (6.0-8.3)
[2017-05-26 13:46] LABS: MEAN CELL VOLUME 107.8 fl (81-100)
[2017-05-26 15:32] LABS: BAND NEUTROPHILE 0 % (0-10); BASOPHIL 0 % (0-3); EOSINOPHIL 2 % (0-5); LYMPHOCYTE 26 % (20-50); MONOCYTE 4 % (2-10); NEUTROPHILS 68 % (40-80); PLATELET ESTIMATE ADEQUATE (NORMAL); PLATELET MORPHOLOGY NORMAL (NORMAL); TOTAL CELLS COUNTED 100
[2017-05-26] MEDS ORDERED: Fleet Enema 135 mL RC ONE (16:56)
--- NOTE | 2017-05-27 08:18 | Diagnostic Imaging Report ---
CT scan abdomen and pelvis without intravenous contrast HISTORY: Abnormal liver function tests, vomiting Total DLP equals 585 CTDI equals 12.9 Axial sections were obtained from the xiphoid process down to the pubic symphysis. Limited sections through the lower chest demonstrate cardiomegaly. Artifact related to cardiac electrode lead wires noted. The liver is homogeneous parenchyma. No focal lesions. The spleen appears normal. Surgical clips noted in the pawel hepatis region. Gastrostomy tube is seen. Spleen appears normal. No focal amenities seen in the region of the pancreas. No focal renal lesions. No hydronephrosis. The exam of the pelvis demonstrates preservation of normal fat planes. No abnormal soft tissue masses or abnormal fluid collections. There is a distended stool-filled lower sigmoid colon and rectum. IMPRESSION: 1. No acute abnormalities 2. Gastrostomy tube 3. Distended stool-filled lower sigmoid colon and rectum 4. Severe deformity and surgical changes about the right hip. Changes consistent with chronic dislocation noted about the left hip.
== END 2017-05-26 19:15 | disposition home or self-care (01) ==
LOC: ER 12:36
DX: R11.10 Vomiting, unspecified (principal)
CPT/HCPCS: 36415-UA; 71045-TC; 80053-TC; 82140-TC; 85007-TC; 85027-TC; 85610-TC; 93005

== ENCOUNTER 2018-02-19 00:20 | Emergency (ER) | payer MEDICARE, MEDICAID ==
--- NOTE | 2018-02-19 01:00 | ED Physician Chart ---
ED Chief Complaint/HPI - Patient Information Date Seen:: 02/19/18 Time Seen:: 00:56 Chief Complaint:: gtube dislodged History of Present Illness:: 43 [place] problems severe mr non verbal severe ctxs arms legs who pulled her gtube Allergies:: Allergies Allergy/AdvReac Type Severity Reaction Status Date / Time No Known Allergies Allergy Verified 02/19/18 00:49 ED Review of Systems - Review of Systems General/Constitutional: No fever, No chills Skin: No skin lesions Head: No headache Neck: No swelling Cardio Vascular: No chest pain, No palpitations Pulmonary: No SOB GI: No vomiting G/U: No dysuria Fruit Bar Maker: No vaginal discharge Musculoskeletal: No bone or joint pain Hematopoietic: No bruising Allergic/Immuno: No urticaria Neurological: No syncope Family Medical History - Family Member Mother History Unknown: Yes ED Septic Shock - . Is Septic Shock (SBP<90, OR Lactate>4 mmol\L) present?: No ED Reassessment (Disposition) - Reassessment Reassessment Condition:: Improved - Diagnosis Diagnosis:: gtube dislodgement s/p replacement - Patient Disposition Discharge/Transfer:: Residential/Boarding Care Condition at Disposition:: Stable
[2018-02-19] MEDS ORDERED: Diatrizoate Meglumine/Diatri 30 mL Sol ONE (01:28)
--- NOTE | 2018-02-19 08:04 | Diagnostic Imaging Report ---
Upper GI (Limited) HISTORY: Gastrostomy tube placement Water-soluble contrast was instilled through patient's gastrostomy tube. The exam demonstrates opacification of the gastric lumen. IMPRESSION: 1. Confirmation gastrostomy tube within the gastric lumen. 2. Nonspecific bowel gas pattern
== END 2018-02-19 02:30 ==
LOC: ER 00:20
DX: K94.23 Gastrostomy malfunction (principal); Z43.1 Encounter for attention to gastrostomy
CPT/HCPCS: Z7502; Z7610